=== PATIENT | female | born 1975 | race Caucasian/White ===

== ENCOUNTER 2018-09-08 13:09 | Emergency (ER) | payer MEDICAID, SELFPAY ==
--- NOTE | 2018-09-08 13:28 | NUTRITION ---
pt slipped on the ice at 0300 am after a night of drinking in [place] pt states no LOC complaining of 10/10 pain in the left wrist, 8/10 scolder, 6/10 headache
[2018-09-08 13:31] VITALS: BP 129/91; PULSE 81; RESP 16; TEMP 37.2; O2SAT 96
--- NOTE | 2018-09-08 13:48 | W.ED.GENAD ---
Discharge Plan Disposition Patient Disposition: HOME Discharge Details Chief Complaint: Orthopedic Clinical Impression: Fall due to ice or snow, Degenerative disc disease, cervical, Thyroid nodule, Contusion of elbow and forearm Primary Care Provider: Natalie Chirinos ED Provider: Dajuan Corcoran Home Meds and New Rx's Prescriptions: Continued buspirone 15 MG tablet 7.5 mg PO BID RF: 0 Discharge Instructions Instructions: Contusion in Adults (ED), Fall Prevention (ED) Additional Instructions: Were noted to have a thyroid nodule on CT of your cervical spine. It was recommended that you have a follow-up ultrasound. Please be sure to discuss incidental findings on your imaging studies with your primary care physician as he will need additional diagnostic testing. Use sling as needed for comfort. Please take ibuprofen over the counter - dose according to label. Disposition decision was made weighing the risks and benefits of hospitalization versus outpatient treatment, the risk for further decompensation, and the patient's wishes. The patient was stable and requested discharge. Prior to discharge, my usual and customary return precautions were reviewed with the patient - this included follow-up instructions and reason to return to the emergency department if condition worsens, does not improve as expected, or other new concerns arise. Referrals: Natalie Chirinos [Primary Care Provider] - Medical Decision Making 13:52 --42-year-old female presents after fall last night at 3 AM on ice with pain in her left forearm and elbow as well as left scapula and headache. Consider left forearm and elbow fracture. Will xray. Consider acute life-threatening intracranial traumatic hemorrhage. Plan to CT head. Patient has possible distracting injury with forearm injury. Consider C-spine fracture given mechanism and pain. Plan to CT cervical spine. 16:50 --x-ray of the left elbow interpreted by radiology: There is no evidence of acute fracture. X-ray of the left forearm reviewed and interpreted by radiology: There is no evidence of acute fracture. X-ray of the left scapula reviewed and interpreted by radiology: No acute findings. CT of head interpreted by radiology: No acute intracranial abnormality. CT of the cervical spine interpreted by radiology: IMPRESSION: 1. No acute fracture of the cervical spine. 2. No subluxation or dislocation of the cervical spine. 3. Periapical lucencies in the left axilla may represent periapical abscess. 4. Intervertebral disc space narrowing C5-C7 may represent degenerative disc disease. Recommend MRI. 5. 15 mm nodule right lobe of the thyroid. Recommend thyroid ultrasound All results were reviewed with the patient. He was instructed to follow-up with her primary care physician. She was specifically told that she would need additional diagnostic testing including thyroid ultrasound. Patient was given ibuprofen and reassessed and her pain was improved. She will be diagnosed with a sling to use for comfort. Usual and customary discharge instructions were provided. [facility] General Mode of arrival: ambulatory. Date/Time Provider Initiated Documentation: 09/08/18 13:30. Limitations to Documentation: no limitations. Information obtained by: patient. HPI Narrative: 42-year-old female here with chief complaint of left forearm pain. Pain is severe. Pain is constant. Pain persistent since last night when she slipped and fell on ice and sustained injury to her arm. She does note that she hit her head during this fall and continues to have posterior left headache as well as nausea. Patient also notes neck and scapular pain on the left. No associated chest pain or abdominal pain. No shortness of breath. Related Data Home Medications Medication Instructions Recorded Confirmed buspirone 7.5 mg PO BID 02/03/13 09/08/18 Allergies Allergy/AdvReac Type Severity Reaction Status Date / Time bee pollen [Bee Pollen] Allergy Intermediate Swelling/Ed Unverified 09/08/18 14:12 ken General Stated Complaint: Orthopedic KATIE: 3 Review of Systems Review of Systems All systems reviewed & are unremarkable except as noted in HPI and below Musculoskeletal Reports as per HPI PFSH Social History Smoking and Tabacco status: Never Exam Const General: cooperative and no acute distress [facility] Head: normocephalic, no Tony's sign, hematoma left occipital (small) and no raccoon eyes Mouth: moist mucous membranes Eyes Conjunctivae: normal conjunctivae Sclera: normal sclerae EOM: EOM intact bilaterally Neck Neck: trachea midline, supple and tender (left posterior) Resp Auscultation: clear to auscultation bilaterally, no rales, no rhonchi and no wheezes Cardio Jugular venous pressure: no JVD Rate: regular rate and not tachycardic Rhythm: regular rhythm GI Palpation: soft, not firm, no guarding, no masses, not rigid and nontender Back/Spine/Pelvis Thoracic/Lumbar Spine: thoracic and lumbar spine normal to inspection Other: left superior scapula ttp Skin General skin exam: no rashes or lesions noted Neuro General: alert, awake, oriented x3 and tone normal Extrem General: no edema Left upper extremity: elbow/forearm Details: tenderness Location: of the proximal forearm and abnormal ROM (2/2 pain) Details: held in an abnormal fashion Details: in flexion Other: stal LUE sensation and motor intact Psych Appearance: grossly normal Mental Status: mental status grossly normal Speech and Movement: speech and movement normal
--- NOTE | 2018-09-08 13:54 | ED.GENADUL_ITS ---
Discharge Plan Disposition Patient Disposition: HOME Discharge Details Chief Complaint: Orthopedic Clinical Impression: Fall due to ice or snow, Degenerative disc disease, cervical, Thyroid nodule, Contusion of elbow and forearm Primary Care Provider: Natalie Chirinos ED Provider: Dajuan Corcoran Home Meds and New Rx's Prescriptions: Continued buspirone 15 MG tablet 7.5 mg PO BID RF: 0 Discharge Instructions Instructions: Contusion in Adults (ED), Fall Prevention (ED) Additional Instructions: Were noted to have a thyroid nodule on CT of your cervical spine. It was recommended that you have a follow-up ultrasound. Please be sure to discuss incidental findings on your imaging studies with your primary care physician as he will need additional diagnostic testing. Use sling as needed for comfort. Please take ibuprofen over the counter - dose according to label. Disposition decision was made weighing the risks and benefits of hospitalization versus outpatient treatment, the risk for further decompensation, and the patient's wishes. The patient was stable and requested discharge. Prior to discharge, my usual and customary return precautions were reviewed with the patient - this included follow-up instructions and reason to return to the emergency department if condition worsens, does not improve as expected, or other new concerns arise. Referrals: Natalie Chirinos [Primary Care Provider] - Medical Decision Making 13:52 --42-year-old female presents after fall last night at 3 AM on ice with pain in her left forearm and elbow as well as left scapula and headache. Consider left forearm and elbow fracture. Will xray. Consider acute life-threatening intracranial traumatic hemorrhage. Plan to CT head. Patient has possible distracting injury with forearm injury. Consider C- spine fracture given mechanism and pain. Plan to CT cervical spine. 16:50 --x-ray of the left elbow interpreted by radiology: There is no evidence of acute fracture. X-ray of the left forearm reviewed and interpreted by radiology: There is no evidence of acute fracture. X-ray of the left scapula reviewed and interpreted by radiology: No acute findings. CT of head interpreted by radiology: No acute intracranial abnormality. CT of the cervical spine interpreted by radiology: IMPRESSION: 1. No acute fracture of the cervical spine. 2. No subluxation or dislocation of the cervical spine. 3. Periapical lucencies in the left axilla may represent periapical abscess. 4. Intervertebral disc space narrowing C5-C7 may represent degenerative disc disease. Recommend MRI. 5. 15 mm nodule right lobe of the thyroid. Recommend thyroid ultrasound All results were reviewed with the patient. He was instructed to follow-up with her primary care physician. She was specifically told that she would need additional diagnostic testing including thyroid ultrasound. Patient was given ibuprofen and reassessed and her pain was improved. She will be diagnosed with a sling to use for comfort. Usual and customary discharge instructions were provided. [facility] General Mode of arrival: ambulatory . Date/Time Provider Initiated Documentation: 09/08/18 13:30 . Limitations to Documentation: no limitations . Information obtained by: patient . HPI Narrative: 42-year-old female here with chief complaint of left forearm pain. Pain is severe. Pain is constant. Pain persistent since last night when she slipped and fell on ice and sustained injury to her arm. She does note that she hit her head during this fall and continues to have posterior left headache as well as nausea. Patient also notes neck and scapular pain on the left. No associated chest pain or abdominal pain. No shortness of breath. Related Data Home Medications Medication Instructions Recorded Confirmed buspirone 7.5 mg PO BID 02/03/13 09/08/18 Allergies Allergy/AdvReac Type Severity Reaction Status Date / Time bee pollen [Bee Pollen] Allergy Intermediate Swelling/Ed Unverified 09/08/18 14:12 ken General Stated Complaint: Orthopedic KATIE: 3 Review of Systems Review of Systems All systems reviewed & are unremarkable except as noted in HPI and below Musculoskeletal Reports as per HPI PFSH Social History Smoking and Tabacco status: Never Exam Const General: cooperative and no acute distress [facility] Head: normocephalic, no Tony's sign, hematoma left occipital (small) and no raccoon eyes Mouth: moist mucous membranes Eyes Conjunctivae: normal conjunctivae Sclera: normal sclerae EOM: EOM intact bilaterally Neck Neck: trachea midline, supple and tender (left posterior) Resp Auscultation: clear to auscultation bilaterally, no rales, no rhonchi and no wheezes Cardio Jugular venous pressure: no JVD Rate: regular rate and not tachycardic Rhythm: regular rhythm GI Palpation: soft, not firm, no guarding, no masses, not rigid and nontender Back/Spine/Pelvis Thoracic/Lumbar Spine: thoracic and lumbar spine normal to inspection Other: left superior scapula ttp Skin General skin exam: no rashes or lesions noted Neuro General: alert, awake, oriented x3 and tone normal Extrem General: no edema Left upper extremity: elbow/forearm Details: tenderness Location: of the proximal forearm and abnormal ROM (2/2 pain) Details: held in an abnormal fashion Details: in flexion Other: stal LUE sensation and motor intact Psych Appearance: grossly normal Mental Status: mental status grossly normal Speech and Movement: speech and movement normal
--- NOTE | 2018-09-08 14:35 | DI.CT_ITS ---
SYMPTOMS/DIAGNOSIS: PAIN S/P FALL, POTENTIAL DISTRACTING INJURY CT BRAIN, NONCONTRAST: No priors. The ventricular system is normal in appearance. There is no evidence of an intracranial mass lesion. There is no evidence of a subdural or epidural hematoma. No focal areas of decreased attenuation are seen. IMPRESSION: Normal noncontrast cranial CT. CT SCAN OF THE CERVICAL SPINE: Multiple contiguous axial images of the cervical spine were obtained. Sagittal and coronal reformatted images were evaluated on the Siem[employer] workstation. There are no priors for comparison. There is no acute fracture or subluxation in the cervical spine. There are moderate degenerative changes seen throughout the cervical spine, particularly from C5-6 through C7-T1. If there are radicular concerns, an MRI may be considered for further evaluation. IMPRESSION: No acute fracture or subluxation of cervical spine.
--- NOTE | 2018-09-08 14:42 | DI.RAD_ITS ---
SYMPTOMS/DIAGNOSIS: FALL, PAIN AND TENDERNESS LEFT SCAPULA: Two views. No acute fracture or dislocation is identified. LEFT FOREARM: Two views. The patient's bracelet obscures portions of the distal radius and ulna. No acute fracture or dislocation is seen. The soft tissues are unremarkable. IMPRESSION: No acute fracture or dislocation. LEFT ELBOW: Three views. No acute fracture or dislocation is identified.
--- NOTE | 2018-09-08 15:09 | DI.VRAD_ITS ---
EXAM: CT Head Without Contrast EXAM DATE/TIME: 09/08/2018 1:49 PM CLINICAL HISTORY: 42 years old, female; Signs and symptoms; Other: Fall, pain, potential distracting injury TECHNIQUE: Axial computed tomography images of the head/brain without contrast. All CT scans at this facility use at least one of these dose optimization techniques: automated exposure control; mA and/or kV adjustment per patient size (includes targeted exams where dose is matched to clinical indication); or iterative reconstruction. Coronal and sagittal reformatted images were created and reviewed. COMPARISON: No relevant prior studies available. FINDINGS: Brain: Normal. No hemorrhage. No significant white matter disease. No edema. Ventricles: Normal. No ventriculomegaly. Bones/joints: Unremarkable. No acute fracture. Sinuses: Visualized sinuses are unremarkable. No acute sinusitis. Mastoid air cells: Visualized mastoid air cells are unremarkable. No mastoid effusion. Soft tissues: Unremarkable. IMPRESSION: No acute intracranial abnormality. EXAM: CT Cervical Spine Without Contrast EXAM DATE/TIME: 09/08/2018 1:49 PM CLINICAL HISTORY: 42 years old, female; Signs and symptoms; Other: Fall, pain, potential distracting injury TECHNIQUE: Axial computed tomography images of the cervical spine without intravenous contrast. All CT scans at this facility use at least one of these dose optimization techniques: automated exposure control; mA and/or kV adjustment per patient size (includes targeted exams where dose is matched to clinical indication); or iterative reconstruction. Coronal and sagittal reformatted images were created and reviewed. COMPARISON: No relevant prior studies available. FINDINGS: Vertebrae: No acute fracture of the cervical spine. No subluxation or dislocation of the cervical spine. Anterior osteophyte formation C5-C7 Degenerative changes in the facets at multiple levels Degenerative changes at C1/C2 Discs/Spinal canal/Neural foramina: Intervertebral disc space narrowing C5-C7 may represent degenerative disc disease.. Posterior osteophyte formation C5-C7 Soft tissues: Unremarkable. Dental: Periapical lucencies in the left axilla may represent periapical abscess. Thyroid: 15 mm nodule right lobe of the thyroid Lungs: Lung apices are normal. IMPRESSION: 1. No acute fracture of the cervical spine. 2. No subluxation or dislocation of the cervical spine. 3. Periapical lucencies in the left axilla may represent periapical abscess. 4. Intervertebral disc space narrowing C5-C7 may represent degenerative disc disease. Recommend MRI. 5. 15 mm nodule right lobe of the thyroid. Recommend thyroid ultrasound Dictated and Authenticated by: Dorina Antony MD. Ordering:MARITA Graff MD
--- NOTE | 2018-09-08 15:10 | DI.VRAD_ITS ---
EXAM: XR Left Scapula Complete EXAM DATE/TIME: 09/08/2018 2:56 PM CLINICAL HISTORY: 42 years old, female; Pain; Shoulder; Left; Patient HX: Fall on ice this morning, pain left scapular area. TECHNIQUE: XR Left scapula complete. COMPARISON: No relevant prior studies available. FINDINGS: Bones/joints: Normal. There is no evidence of acute fracture.There is no evidence of malalignment or dislocation. Soft tissues: Normal. IMPRESSION: No acute findings. Dictated and Authenticated by: Dorina Antony MD. Ordering:MARITA Graff MD
--- NOTE | 2018-09-08 15:12 | DI.VRAD_ITS ---
EXAM: XR Left Forearm, 2 Views EXAM DATE/TIME: 09/08/2018 2:56 PM CLINICAL HISTORY: 42 years old, female; Pain; Lower or forearm; Left; Patient HX: Pain left elbow and forearm. Best images obtained due to patient unable to externally rotate arm for elbow. Patient unable to remove bracelets have been on since 1998. TECHNIQUE: XR Left forearm 2 views. COMPARISON: No relevant prior studies available. FINDINGS: Bones/joints: There is no evidence of acute fracture. There is no evidence of malalignment or dislocation. Mild degenerative changes in the humeroulnar joint Soft tissues: Normal. IMPRESSION: There is no evidence of acute fracture. Dictated and Authenticated by: Dorina Antony MD. Ordering:MARITA Graff MD
--- NOTE | 2018-09-08 15:13 | DI.VRAD_ITS ---
EXAM: XR Left Elbow Complete, 3 or more Views EXAM DATE/TIME: 09/08/2018 1:49 PM CLINICAL HISTORY: 42 years old, female; Pain; Elbow; Left; Patient HX: Pain left elbow and forearm. Best images obtained due to patient unable to externally rotate arm for elbow. Patient unable to remove bracelets have been on since 1998. TECHNIQUE: XR Left elbow, 3 or more views. COMPARISON: No relevant prior studies available. FINDINGS: Bones/joints: Minimal degenerative changes in the humeroulnar joint. There is no evidence of acute fracture. There is no evidence of malalignment or dislocation. Soft tissues: Normal. IMPRESSION: There is no evidence of acute fracture. Dictated and Authenticated by: Dorina Antony MD. Ordering:MARITA Graff MD
[2018-09-08] MEDS: Acetaminophen 325 MG TAB 650 MG PO (15:53)
[2018-09-08] MEDS: Ibuprofen 600 MG TAB PO (15:54)
== END 2018-09-08 17:00 | disposition home or self-care (01) ==
PROVIDERS: Emergency Provider Student in an Organized Health Care Education/Training Program; PCP Family Medicine
DX: M50.322 Other cervical disc degeneration at C5-C6 level (principal); M50.323 Other cervical disc degeneration at C6-C7 level; R93.7 Abnormal findings on diagnostic imaging of other parts of musculoskeletal system; S50.12XA Contusion of left forearm, initial encounter; S40.012A Contusion of left shoulder, initial encounter; R51 Headache; W00.0XXA Fall on same level due to ice and snow, initial encounter
CPT/HCPCS: 81025; 99284; 70450; 72125; 73010; 73080; 73090; L3650

== ENCOUNTER 2018-09-11 09:37 | Outpatient (REF) | payer MEDICAID, SELFPAY ==
[2018-09-11 14:25] LABS: FREE T4 1.01 ng/dL (0.76-1.46); TSH 2.66 uIU/mL (0.358-3.74)
[2018-09-11 22:10] LABS: T3,Free 4.7 pg/ml (2.8-5.3)
[2018-09-12 10:01] LABS: Thyroglobulin Antibody <15 U/mL (<61); Thyroperoxidase Antibody 37 U/mL (<61)
== END 2018-09-11 09:57 ==
LOC: NCHCN 09:37
PROVIDERS: PCP Family Medicine; Visit Provider Nurse Practitioner Family
DX: E04.1 Nontoxic single thyroid nodule (principal); M54.2 Cervicalgia; R51 Headache
CPT/HCPCS: 86376; 84439; 84443; 84481

== ENCOUNTER 2018-09-13 00:19 | Outpatient (CLI) | payer MEDICAID, SELFPAY ==
--- NOTE | 2018-09-13 14:00 | DI.US_ITS ---
SYMPTOMS/DIAGNOSIS: THYROID NODULE, E04.1 THYROID ULTRASOUND: In the right lobe, there is a 0.4 x 0.2 x 0.3 cm cystic avascular nodule present. In the left lobe, there is a 0.2 x 0.1 x 0.3 cm cystic avascular nodule present. No suspicious cystic or solid nodules are seen in the thyroid gland. The isthmus is within normal limits at 0.5 cm. IMPRESSION: Two small less than 5 mm cystic avascular nodules in the thyroid gland.
== END 2018-09-13 00:39 ==
PROVIDERS: PCP Family Medicine; Visit Provider Nurse Practitioner Family
DX: E04.1 Nontoxic single thyroid nodule (principal)
CPT/HCPCS: 76536

== ENCOUNTER 2018-12-09 13:49 | Emergency (ER) | payer MEDICAID, SELFPAY ==
[2018-12-09 13:59] VITALS: BP 151/101; PULSE 87; RESP 16; TEMP 36.5; O2SAT 97
--- NOTE | 2018-12-09 14:03 | W.ED.GENAD ---
Discharge Plan Disposition Patient Disposition: HOME Condition: Fair Discharge Details Chief Complaint: Sorethroat Clinical Impression: Strep pharyngitis Primary Care Provider: Joanna Minor ED Provider: Eva Vidal Home Meds and New Rx's Prescriptions: New lidocaine HCl [Lidocaine Viscous] 2 % solution 15 ml MM BID-QID PRN (Reason: mouth pain) Qty: 100 RF: 0 amoxicillin 500 mg capsule 500 mg PO BID Qty: 19 RF: 0 Continued buspirone 15 MG tablet 7.5 mg PO BID RF: 0 Discharge Instructions Instructions: Upper Respiratory Infection (ED) Additional Instructions: Encourage hydration. Tylenol and ibuprofen as needed for discomfort. You may use viscous lidocaine as prescribed to help with sore throat, only take as prescribed. Amoxicillin will help treat your strep pharyngitis, even if symptoms improve please take the entire course. You will need to change her toothbrush. If you develop increased swelling, inability stay hydrated, difficulty breathing or other new/worsening symptoms please seek care urgently once again. Otherwise, please follow-up with primary care in 1 week if not improved. Referrals: Joanna Minor [Primary Care Provider] - Discharge Data Discharge Date/Time-TO BE ENTERED AT DEPARTURE: 12/09/18 15:00 Medical Decision Making Patient is a 43-year-old female presenting today with chief complaint of sore throat. She reports that symptoms began approximately 3 days ago. Has been endorsing fevers, chills, sore throat and bilateral ear pain. Denies any GI symptoms. On exam, patient appears uncomfortable. Throat is erythematous with bilateral tonsillar swelling and white exudate. Palpable lymphadenopathy. Patient is handling secretions well although she does appear uncomfortable. She has not had anything as of yet today for discomfort. Patient appears nontoxic. No abnormalities noted in her bilateral ears. No findings to suggest abscess, no trismus, no swelling under tongue. Rapid strep positive, UPT negative. Discussed these findings with the patient. Given the swelling, will give patient a dose of steroids while here. Patient will be treated with antibiotics. Encourage hydration. She is given strict return precautions. Advise follow-up with primary care in 1 week if not improving. All of her questions and concerns were addressed and she is in agreement this plan. HPI General Mode of arrival: ambulatory. Date/Time Provider Initiated Documentation: 12/09/18 14:03. Limitations to Documentation: no limitations. Information obtained by: patient and RN notes reviewed. History of Present Illness 43 year old F presents to the emergency department with the chief complaint of sore throat, described as moderate, with intensity rated at 8. Quality is described as burning, and is localized to the mouth. Patient reports no radiation. Patient started experiencing this day(s) (3) and it has been constant. No relieving factors improve symptom(s), Eating worsens symptoms . Patient notes fever/chills and loss of appetite (secondary to sore throat); denies chest pain, cough, diaphoresis, headaches, malaise, nausea/vomiting, rash, shortness of breath and weakness. Patient did receive the following treatments prior to arrival, none Related Data Home Medications Medication Instructions Recorded Confirmed buspirone 7.5 mg PO BID 02/03/12/09/18 amoxicillin 500 mg PO BID #19 cap 12/09/18 lidocaine HCl [Lidocaine Viscous] 15 ml MM BID-QID PRN #100 ml 12/09/18 Previous Rx's Medication Instructions Recorded amoxicillin 500 mg PO BID #19 cap 12/09/18 lidocaine HCl [Lidocaine Viscous] 15 ml MM BID-QID PRN #100 ml 12/09/18 Allergies Allergy/AdvReac Type Severity Reaction Status Date / Time bee pollen [Bee Pollen] Allergy Intermediate Swelling/Ed Unverified 12/09/18 14:01 ken General Stated Complaint: Sorethroat KATIE: 4 Review of Systems Constitutional Reports as per HPI, Reports chills, Reports fatigue, Reports fever(s), Denies headache(s) and Reports poor appetite Eyes Reports as per HPI, Denies eye discharge and Denies irritation ENT Reports as per HPI, Denies change in voice, Denies dental pain, Denies dizziness, Denies ear discharge, Reports otalgia (bilateral), Denies headache(s), Denies nasal congestion, Denies nasal discharge, Denies sinus pain, Denies sinus pressure, Reports sore throat, Denies throat swelling and Denies tongue swelling Cardiovascular Reports as per HPI, Denies chest pain and Denies dyspnea Respiratory Reports as per HPI, Denies cough, Denies hemoptysis and Denies dyspnea Gastrointestinal Reports as per HPI, Denies abdominal pain, Denies change in bowel habits, Denies nausea and Denies vomiting Integumentary/Breasts Reports as per HPI and Denies rash Neurologic Reports as per HPI, Denies dizziness and Denies headache(s) Endocrine Reports fatigue Allergic/Immunologic Denies throat swelling and Denies tongue swelling [facility] Social History Smoking/Tobacco Use Status: Never Drug use: Never Do you feel safe in your relationship?: Yes Exam Const General: cooperative, healthy appearing, comfortable, no acute distress, well developed and well groomed Nutritional Appearance: average body habitus and well nourished Orientation: alert and awake [facility] Head: normal to inspection, normocephalic and atraumatic Ears: hearing grossly normal bilaterally, external ears normal and TM's normal bilaterally General nose exam: external nose normal and nares normal Face and sinus: normal facial exam, sinuses nontender, face symmetric and no sinus tenderness Mouth: oral mucosae normal, lip normal, tongue normal, oropharynx normal, moist mucous membranes, no muffled voice, normal tongue, no trismus and No restricted motion Teeth and gingiva: dentition normal Throat: uvula midline, abnormal tonsil bilaterally erythema, exudates and hypertrophy, no peritonsillar masses, uvula not displaced and no uvular edema Eyes General: appearance normal, both eyes and all related structures Neck Neck: normal visual inspection, full ROM, no lymphadenopathy and no meningeal signs Resp Effort & Inspection: normal respiratory effort, able to speak in complete sentences and no respiratory distress Auscultation: clear to auscultation bilaterally, no rales, no rhonchi and no wheezes Cardio Rate: regular rate Rhythm: regular rhythm Heart Sounds: S1 normal and S2 normal Skin General skin exam: no rashes or lesions noted Neuro General: alert and awake Cognition: normal cognition Speech: speech normal Gait: normal gait Psych Appearance: grossly normal and well kempt Mental Status: mental status grossly normal Speech and Movement: speech and movement normal Course Vital Signs Temperature 36.5 C 12/09/18 13:59 Pulse 87 12/09/18 13:59 Respiratory Rate 16 12/09/18 13:59 Blood Pressure 151/101 H 12/09/18 13:59 Pulse Oximetry 97 12/09/18 13:59 Temperature 36.5 C 12/09/18 13:59 Temperature Source Skin 12/09/18 13:59 Pulse 87 12/09/18 13:59 Respiratory Rate 16 12/09/18 13:59 Respiratory Effort Non-Labored 12/09/18 13:59 Blood Pressure 151/101 H 12/09/18 13:59 Blood Pressure Position Sitting 12/09/18 13:59 Pulse Oximetry 97 12/09/18 13:59 Oxygen Delivery Method Room Air 12/09/18 13:59 Oxygen Flow Rate 0 12/09/18 13:59 Pain Level 8 12/09/18 13:59
--- NOTE | 2018-12-09 14:45 | ED.GENADUL_ITS ---
Discharge Plan Disposition Patient Disposition: HOME Condition: Fair Discharge Details Chief Complaint: Sorethroat Clinical Impression: Strep pharyngitis Primary Care Provider: Joanna Minor ED Provider: Eva Vidal Home Meds and New Rx's Prescriptions: New lidocaine HCl [Lidocaine Viscous] 2 % solution 15 ml MM BID-QID PRN (Reason: mouth pain) Qty: 100 RF: 0 amoxicillin 500 mg capsule 500 mg PO BID Qty: 19 RF: 0 Continued buspirone 15 MG tablet 7.5 mg PO BID RF: 0 Discharge Instructions Instructions: Upper Respiratory Infection (ED) Additional Instructions: Encourage hydration. Tylenol and ibuprofen as needed for discomfort. You may use viscous lidocaine as prescribed to help with sore throat, only take as prescribed. Amoxicillin will help treat your strep pharyngitis, even if symptoms improve please take the entire course. You will need to change her toothbrush. If you develop increased swelling, inability stay hydrated, difficulty breathing or other new/worsening symptoms please seek care urgently once again. Otherwise, please follow-up with primary care in 1 week if not improved. Referrals: Joanna Minor [Primary Care Provider] - Discharge Data Discharge Date/Time-TO BE ENTERED AT DEPARTURE: 12/09/18 15:00 Medical Decision Making Patient is a 43-year-old female presenting today with chief complaint of sore throat. She reports that symptoms began approximately 3 days ago. Has been endorsing fevers, chills, sore throat and bilateral ear pain. Denies any GI symptoms. On exam, patient appears uncomfortable. Throat is erythematous with bilateral tonsillar swelling and white exudate. Palpable lymphadenopathy. Patient is handling secretions well although she does appear uncomfortable. She has not had anything as of yet today for discomfort. Patient appears nontoxic. No abnormalities noted in her bilateral ears. No findings to suggest abscess, no trismus, no swelling under tongue. Rapid strep positive, UPT negative. Discussed these findings with the patient. Given the swelling, will give patient a dose of steroids while here. Patient will be treated with antibiotics. Encourage hydration. She is given strict return precautions. Advise follow-up with primary care in 1 week if not improving. All of her questions and concerns were addressed and she is in agreement this plan. HPI General Mode of arrival: ambulatory . Date/Time Provider Initiated Documentation: 12/09/18 14:03 . Limitations to Documentation: no limitations . Information obtained by: patient and RN notes reviewed . History of Present Illness 43 year old F presents to the emergency department with the chief complaint of sore throat, described as moderate, with intensity rated at 8. Quality is described as burning, and is localized to the mouth. Patient reports no radiation. Patient started experiencing this day(s) (3) and it has been constant. No relieving factors improve symptom(s), Eating worsens symptoms . Patient notes fever/chills and loss of appetite (secondary to sore throat); denies chest pain, cough, diaphoresis, headaches, malaise, nausea/vomiting, rash, shortness of breath and weakness. Patient did receive the following treatments prior to arrival, none Related Data Home Medications Medication Instructions Recorded Confirmed buspirone 7.5 mg PO BID 02/03/12/09/18 amoxicillin 500 mg PO BID #19 cap 12/09/18 lidocaine HCl [Lidocaine Viscous] 15 ml MM BID-QID PRN #100 ml 12/09/18 Previous Rx's Medication Instructions Recorded amoxicillin 500 mg PO BID #19 cap 12/09/18 lidocaine HCl [Lidocaine Viscous] 15 ml MM BID-QID PRN #100 ml 12/09/18 Allergies Allergy/AdvReac Type Severity Reaction Status Date / Time bee pollen [Bee Pollen] Allergy Intermediate Swelling/Ed Unverified 12/09/18 14:01 ken General Stated Complaint: Sorethroat KATIE: 4 Review of Systems Constitutional Reports as per HPI, Reports chills, Reports fatigue, Reports fever(s), Denies headache(s) and Reports poor appetite Eyes Reports as per HPI, Denies eye discharge and Denies irritation ENT Reports as per HPI, Denies change in voice, Denies dental pain, Denies dizz iness, Denies ear discharge, Reports otalgia (bilateral), Denies headache(s), Denies nasal congestion, Denies nasal discharge, Denies sinus pain, Denies sinus pressure, Reports sore throat, Denies throat swelling and Denies tongue swelling Cardiovascular Reports as per HPI, Denies chest pain and Denies dyspnea Respiratory Reports as per HPI, Denies cough, Denies hemoptysis and Denies dyspnea Gastrointestinal Reports as per HPI, Denies abdominal pain, Denies change in bowel habits, Denies nausea and Denies vomiting Integumentary/Breasts Reports as per HPI and Denies rash Neurologic Reports as per HPI, Denies dizziness and Denies headache(s) Endocrine Reports fatigue Allergic/Immunologic Denies throat swelling and Denies tongue swelling [facility] Social History Smoking/Tobacco Use Status: Never Drug use: Never Do you feel safe in your relationship?: Yes Exam Const General: cooperative, healthy appearing, comfortable, no acute distress, well developed and well groomed Nutritional Appearance: average body habitus and well nourished Orientation: alert and awake [facility] Head: normal to inspection, normocephalic and atraumatic Ears: hearing grossly normal bilaterally, external ears normal and TM's normal bilaterally General nose exam: external nose normal and nares normal Face and sinus: normal facial exam, sinuses nontender, face symmetric and no sinus tenderness Mouth: oral mucosae normal, lip normal, tongue normal, oropharynx normal, moist mucous membranes, no muffled voice, normal tongue, no trismus and No restricted motion Teeth and gingiva: dentition normal Throat: uvula midline, abnormal tonsil bilaterally erythema, exudates and hypertrophy, no peritonsillar masses, uvula not displaced and no uvular edema Eyes General: appearance normal, both eyes and all related structures Neck Neck: normal visual inspection, full ROM, no lymphadenopathy and no meningeal signs Resp Effort & Inspection: normal respiratory effort, able to speak in complete sentences and no respiratory distress Auscultation: clear to auscultation bilaterally, no rales, no rhonchi and no wheezes Cardio Rate: regular rate Rhythm: regular rhythm Heart Sounds: S1 normal and S2 normal Skin General skin exam: no rashes or lesions noted Neuro General: alert and awake Cognition: normal cognition Speech: speech normal Gait: normal gait Psych Appearance: grossly normal and well kempt Mental Status: mental status grossly normal Speech and Movement: speech and movement normal Course Vital Signs Temperature 36.5 C 12/09/18 13:59 Pulse 87 12/09/18 13:59 Respiratory Rate 16 12/09/18 13:59 Blood Pressure 151/101 H 12/09/18 13:59 Pulse Oximetry 97 12/09/18 13:59 Temperature 36.5 C 12/09/18 13:59 Temperature Source Skin 12/09/18 13:59 Pulse 87 12/09/18 13:59 Respiratory Rate 16 12/09/18 13:59 Respiratory Effort Non-Labored 12/09/18 13:59 Blood Pressure 151/101 H 12/09/18 13:59 Blood Pressure Position Sitting 12/09/18 13:59 Pulse Oximetry 97 12/09/18 13:59 Oxygen Delivery Method Room Air 12/09/18 13:59 Oxygen Flow Rate 0 12/09/18 13:59 Pain Level 8 12/09/18 13:59
[2018-12-09] MEDS: Dexamethasone 10 MG/ML VIAL PO (14:50)
[2018-12-09] MEDS: Amoxicillin 500 MG CAP PO (14:50)
[2018-12-09] MEDS: Lidocaine 2% Viscous 15 ML CUP PO (14:50)
[2018-12-09] MEDS: Acetaminophen 325 MG TAB 650 MG PO (14:50)
== END 2018-12-09 15:00 | disposition home or self-care (01) ==
PROVIDERS: Emergency Provider Physician Assistant; PCP Nurse Practitioner Family
DX: J02.0 Streptococcal pharyngitis (principal)
CPT/HCPCS: 81025; 87880; 99283; J1100

== ENCOUNTER 2019-07-19 09:39 | Emergency (ER) | payer MEDICAID, SELFPAY ==
[2019-07-19 09:44] VITALS: BP 122/82; PULSE 101; RESP 18; TEMP 36.4; O2SAT 98
--- NOTE | 2019-07-19 10:31 | ED.GENADUL_ITS ---
Discharge Plan Disposition Patient Disposition: HOME Condition: Fair Discharge Details Chief Complaint: Sorethroat Clinical Impression: Strep pharyngitis Primary Care Provider: Joanna Minor ED Provider: Joanna Nieto Home Meds and New Rx's Prescriptions: New penicillin V potassium 500 mg tablet 500 mg PO BID Qty: 20 RF: 0 No Action buspirone 15 MG tablet 7.5 mg PO BID RF: 0 ibuprofen 200 mg Tablet 600 mg PO PRN PRNRF: 0 Discharge Instructions Instructions: Strep Throat (ED) Additional Instructions: Drink plenty of fluids and stay hydrated. Popsicles, ice cream, smoothies and cold drinks for comfort for your throat. Consider Cepacol lozenge for comfort. Use Motrin or Tylenol for discomfort and fever control intermittently as recommended [id number]. Use antibiotic as prescribed. Recheck with PCP in the next 3 to 5 days if not improving For difficulty eating, drinking increased throat pain or increase sensation of swelling have immediate reevaluation in the emergency room as discussed. Return for alarming or worsening symptoms if needed sooner Medical Decision Making This a 43-year-old patient who presents for complaints of sore throat. Patient reports sore throat for the last 2 days. Patient reports painful swallowing but is able to swallow eat and drink. Patient denies significant difficulty breathing or shortness of breath or wheezing. Mild cough present. Mild nausea and abdominal pain intermittently which is since resolved. Patient reports mild headache. Mild ear pain. Patient reports feeling febrile yesterday. Patient concerned primarily with the possibility of strep throat as this does feel similar to her previous experience with strep. On exam patient does have moderate pharyngeal erythema without significant tonsillar swelling or exudate. Patient has nothing to indicate an peritonsillar abscess at this time. Patient does report pain when swallowing has been able to tolerate eating and drinking but seems uncomfortable. Discussed the use of steroids for symptomatic relief however at this time patient declines steroid treatment and would prefer antibiotic treatment in addition to ibuprofen and Tylenol. Patient is aware of alarming signs and symptoms for which she should return as we did discuss these at length. Patient feels comfortable with this plan of care. Patient is strep positive today. Will give initial dose of Tylenol and penicillin at this time. Patient given a prescription for 10 days of penicillin. Precautions discussed. The patient was stable and requested discharge. Prior to discharge, my usual and customary return precautions were reviewed with the patient - this included follow-up instructions and reasons to return to the Emergency Department if conditions worsens, does not improve as expected, or other new concerns arise. HPI General Date/Time Provider Initiated Documentation: 07/19/19 10:18 . HPI Narrative: Is a 43-year-old woman who presents with sore throat which began 2 days ago. Patient reports onset of sore throat associated with fevers at home, mild nausea with abdominal pain which is intermittent and relieved at this time. Patient reports significant sore throat, painful swallowing. Patient denies significant headache or dizziness. Patient does report ear pain. Minimal nasal congestion. Minimal cough. No significant difficulty breathing shortness breath or wheezing. Patient concerned the possibility of strep throat. She has had strep in the past and this feels similar. Denies voice change or trismus. Related Data Home Medications Medication Instructions Recorded Confirmed buspirone 7.5 mg PO BID 02/03/13 07/19/19 ibuprofen 600 mg PO PRN PRN 07/19/19 07/19/19 penicillin V potassium 500 mg PO BID #20 tab 07/19/19 Previous Rx's Medication Instructions Recorded penicillin V potassium 500 mg PO BID #20 tab 07/19/19 Allergies Allergy/AdvReac Type Severity Reaction Status Date / Time bee pollen [Bee Pollen] Allergy Intermediate Swelling/Ed Unverified 07/19/19 09:48 ken General Stated Complaint: Sorethroat KATIE: 4 Review of Systems All systems reviewed & are unremarkable except as noted in HPI and below Constitutional Constitutional: Denies chills, Denies fatigue, Reports fever(s), Reports headache(s) and Denies malaise ENT Ears, Nose, Mouth, and Throat: Denies change in voice, Reports headache(s), Reports nasal congestion, Denies sinus pain, Denies sinus pressure, Reports sore throat and Reports throat swelling Respiratory Respiratory: Reports cough and Denies wheezing Gastrointestinal Gastrointestinal: Reports abdominal pain, Reports nausea and Denies vomiting Neurologic Neurologic: Reports headache(s) Endocrine Endocrine: Denies fatigue Allergic/Immunologic Allergic/Immunologic: Reports throat swelling and Denies wheezing [facility] Social History Smoking/Tobacco Use Status: Never Drug use: Never Do you feel safe at home: Yes Do you feel safe in your relationship?: Yes Exam Narrative Exam Narrative: CONST: Ill-appearing, well hydrated. Alert and alert. HENMT: Head nomocephalic, normal to inspection. Atraumatic. Hearing grossly normal. TMs appear normal bilaterally. Pharyngeal erythema bilaterally with mild swelling. No significant uvula edema. No significant tonsillar swelling or exudate. EYES: General normal appearance. Alignment normal. Eyelids normal. Conjunctiva normal. NECK: Normal visual inspection. FROM. Trachea midline. No Midline tenderness. Cervical lymphadenopathy noted bilaterally anteriorly. CHEST: Normal insepection of the chest. RESP: Normal respiratory effort. Speaking full sentences. No cough. No audible wheezing. No retractions. Breath sounds clear to auscultation bilaterally, full breath sounds equal bilaterally CARDIO: No JVD. No murmurs, regular rate and rhythm. Course Vital Signs Vital signs: Vital Signs Temperature 36.4 C L 07/19/19 09:44 Pulse 101 H 07/19/19 09:44 Respiratory Rate 18 07/19/19 09:44 Blood Pressure 122/82 07/19/19 09:44 Pulse Oximetry 98 07/19/19 09:44 Temperature 36.4 C L 07/19/19 09:44 Temperature Source Skin 07/19/19 09:44 Pulse 101 H 07/19/19 09:44 Respiratory Rate 18 07/19/19 09:44 Respiratory Effort Non-Labored 07/19/19 09:49 Blood Pressure 122/82 07/19/19 09:44 Blood Pressure Position Sitting 07/19/19 09:44 Pulse Oximetry 98 07/19/19 09:44 Oxygen Delivery Method Room Air 07/19/19 09:44 Oxygen Flow Rate 0 07/19/19 09:44 Pain Level 9 07/19/19 09:44 Lab/Test Results Lab/Test Results: POC Strep Test-ARELY(Rapid) Start: 07/19/19 09:55 Freq: Status: Active Protocol: Document 07/19/19 10:09 (Rec: 07/19/19 10:10 [id number]) Strep test-ARELY(Rapid)-POC POC-Strep test-ARELY (Rapid) Positive POC-Strep test-ARELY (Rapid) Positive
[2019-07-19 10:44] VITALS: BP 131/89; PULSE 94; RESP 18; TEMP 36.9; O2SAT 98
[2019-07-19] MEDS: Penicillin V POTASSIUM 500 MG TAB PO (10:45)
[2019-07-19] MEDS: Acetaminophen 500 MG TAB 1000 MG PO (10:45)
== END 2019-07-19 10:50 | disposition home or self-care (01) ==
PROVIDERS: Emergency Provider Physician Assistant; PCP Nurse Practitioner Family
DX: J02.0 Streptococcal pharyngitis (principal); R11.0 Nausea
CPT/HCPCS: 87880; 99283

== ENCOUNTER 2019-09-01 19:45 | Emergency (ER) | payer MEDICAID, SELFPAY ==
[2019-09-01 19:49] VITALS: BP 137/81; PULSE 85; RESP 20; TEMP 36.3; O2SAT 97
[2019-09-01] MEDS: Normal Saline 500 ML IV (20:23)
--- NOTE | 2019-09-01 20:23 | W.ED.GENAD ---
Discharge Plan Disposition Patient Disposition: HOME Condition: Good Discharge Details Chief Complaint: Abd Prob Clinical Impression: Bacterial vaginosis, Acute epigastric pain, Mass of uterus Primary Care Provider: Joanna Minor ED Provider: Lance Echeverria Home Meds and New Rx's Prescriptions: New doxycycline hyclate 100 mg tablet 100 mg PO BID Qty: 20 RF: 0 metronidazole 0.75 % gel 1 appful VG BID 5 Days Qty: 70 RF: 0 No Action buspirone 15 MG tablet 10 mg PO BID RF: 0 ibuprofen 200 mg Tablet 600 mg PO PRN PRNRF: 0 Discharge Instructions Instructions: Epigastric Pain (ED), Pelvic Pain (ED) Additional Instructions: At this time I feel there were few different issues going on. I feel it is likely that you have a mild gastric ulcer or gastritis causing your pain in your left upper quadrant of your abdomen. Please avoid any spicy foods, tomato-based products, or citrus foods. Please stick with a bland diet of rice applesauce bananas and mashed potatoes. Please take the Carafate, as well as Maalox or Pepto-Bismol to help with this. In regards to the lower abdominal pain there appears to be a sort of cyst or small abnormality on your uterus. This is unlikely to be an infection, however out of an abundance of precaution we will recommend treating with the antibiotic doxycycline. Please take this with food, and as directed. You will be contacted by OB for your follow-up appointment. If you do not hear from them shortly, please contact the number provided. You also have bacterial vaginosis, please take the metronidazole cream as directed to help with this. If you notice any worsening of your symptoms, or any new symptoms such as vomiting, diarrhea, fever, chills, shortness of breath, chest pain, numbness, weakness, or fainting , please return immediately to the emergency department for reevaluation. Please follow up with your primary care provider as soon as possible for reassessment and reevaluation. As always, it was a pleasure participating in your medical care today. Referrals: Joanna Minor [Primary Care Provider] - Giacomo James MD [MD CONSULTING PHYSICIAN] - Medical Decision Making This is a pleasant 43-year-old female who presents today for evaluation of abdominal pain for the last week. Patient states that the pain is contraction-like in nature similar to , she feels that there is something kicking around inside. No red flags of vomiting or diarrhea. test was negative at home. No foreign travel or significant previous surgeries aside for . Physical exam demonstrates notable tenderness in the left lower and right lower quadrants of the abdomen. Patient is refusing pain medications, but will except Bentyl. Differential is broad but includes diverticulitis, appendicitis, or less likely pelvic pathology. She has had no vaginal discharge to speak of, and denies any pelvic pain. We will get a CT scan, labs, rehydrate and reassess. 11:[address] scan has returned, no evidence of significant abnormality is submitted for 1.7 x 1.7 x 1.5 hypoattenuation in the anterior wall of the lower uterine segment adjacent to the cervix, differential per radiology includes large nabothian cyst with fluid density in the expanded scar. Vaginal exam was performed with female nurse Crystal at bedside, no significant cervical motion tenderness, no significant abnormality on vaginal exam. Cultures were sent but positive for bacterial vaginosis, negative for trichomoniasis or yeast. The patient has continued to refuse any pain medications. She is refused GI cocktail, and other medication alternatives. Pain appears to be stable, repeat exam shows no signs of an acute surgical abdomen. Patient's laboratory work-up demonstrates a normal white count, normal lactate, normal electrolytes, urinalysis is negative for infection. We will send for gonorrhea and chlamydia. We will treat with Rocephin, azithromycin. I did contact obstetrics and spoke with Dr. James, he feels that it is unlikely that the nabothian cyst is causing the pain, however he does recommend that out of an abundance of precaution that we treat with an antibiotic for potential infection. We will give Rocephin and azithromycin in conjunction with doxycycline. He recommends close follow-up with OB shortly. No signs of appendicitis or diverticulitis on CT scan, no other acute abnormality. No clinical evidence of ovarian torsion. At this time I do feel that the patient is also suffering from a gastritis or gastric ulcer. She still refuses the GI cocktail at this time. With no signs of acute life-threatening etiology, I do feel that she can be safely discharged home with close follow-up. Discussed red flags which to return, and the importance of close follow-up with OB. I have extensively reviewed the treatment plan and discharge instructions with the patient. I have addressed all patient concerns at this time. The patient was made aware of what symptoms to monitor for that would warrant a return to the emergency department. Discussed the plan with the patient, they demonstrate verbal understanding and agreement with our assessment and plan at this time. FINDINGS: Lungs: Lung bases clear. Liver: Normal appearing liver. Gallbladder and bile ducts: Normal appearing gallbladder. No calcified gallstones. No biliary dilatation. Pancreas: Normal appearing pancreas. Spleen: Normal appearing spleen. Adrenals: Normal appearing adrenal glands. Kidneys and ureters: Normal appearing kidneys. No hydronephrosis. Stomach and bowel: No oral contrast. Stomach partially distended with ingested material. No small bowel dilatation to suggest obstruction. Normal-appearing colon. No evidence of diverticulitis or colitis. Appendix: Normal appendix. Intraperitoneal space: No gross ascites or free air. Vasculature: Normal caliber abdominal aorta. Lymph nodes: No pathologically enlarged mesenteric, retroperitoneal, or pelvic sidewall lymph nodes. Bladder: Normal appearing urinary bladder. Reproductive: Anteverted uterus, normal in size. 1.7 cm by 1.7 cm by 1.5 cm focus of hypoattenuation in the anterior wall of the lower uterine segment adjacent to the cervix, possibly a large nabothian cyst or fluid density in the expected location of the Caesarean scar. Comparison with prior imaging recommended. Normal-sized left ovary. Right ovary partially obscured but normal in size. Bones/joints: No acute fracture seen among the bones of the abdomen or pelvis. Prominent discogenic degeneration at L5-S1. Soft tissues: No significant ventral or inguinal hernia. IMPRESSION: 1. No acute bowel pathology demonstrated. 2. 1.7 cm by 1.7 cm by 1.5 cm focus of hypoattenuation in the anterior wall of the lower uterine segment adjacent to the cervix, possibly a large nabothian cyst or fluid density in the expected location of the Caesarean scar. Comparison with prior imaging recommended. Thank you for allowing us to participate in the care of your patient. Dictated and Authenticated by: Fortino Morgan MD 09/01/2019 9:07 PM Eastern Time ([place] & [place]) HPI General Date/Time Provider Initiated Documentation: 09/01/19 19:54. HPI Narrative: This is a 43-year-old female with no significant past medical history except for anxiety who presents today for evaluation of abdominal pain. The patient states that for the last week she has had crampy contraction-like abdominal pain. She is taken a test that was negative but she feels like there is something inside of her that is kicking. Pain is made worse after she eats, however there does not appear to be any specific aggravating or relieving component. She denies any vomiting or diarrhea and has been eating regularly. She denies any blood in her stool. She denies any vaginal discharge, fever or chills. She denies any complaints of numbness tingling or weakness. She denies any previous abdominal surgeries aside for C-sections. No other complaints at this time. Related Data Home Medications Medication Instructions Recorded Confirmed buspirone 10 mg PO BID 02/03/13 09/01/19 ibuprofen 600 mg PO PRN PRN 07/19/19 09/01/19 doxycycline hyclate 100 mg PO BID #20 tab 09/01/19 metronidazole 1 appful VG BID 5 Days #70 gm 09/01/19 Previous Rx's Medication Instructions Recorded doxycycline hyclate 100 mg PO BID #20 tab 09/01/19 metronidazole 1 appful VG BID 5 Days #70 gm 09/01/19 Allergies Allergy/AdvReac Type Severity Reaction Status Date / Time bee pollen [Bee Pollen] Allergy Intermediate Swelling/Ed Unverified 09/01/19 19:52 ken General Stated Complaint: Abd Prob KATIE: 3 Review of Systems All systems reviewed & are unremarkable except as noted in HPI and below PFSH Social History Smoking/Tobacco Use Status: Never Drug use: Never Do you feel safe at home: Yes Do you feel safe in your relationship?: Yes Exam Narrative Exam Narrative: 1.Const: Well-nourished, Well-developed, appearing stated age 2.Eyes: PERRL, no conjunctival injection, and symmetrical lids. 3.ENT: Atraumatic external nose and ears. Moist MM. Neck: Symmetric, trachea midline, No thyromegaly. 4.CVS: +S1/S2, No murmurs or gallops. Peripheral pulses 2+ and equal in all extremities. Brisk capillary refill in all extremities. 5.RESP: Unlabored respiratory effort. Clear to auscultation bilaterally. No wheezes rales or rhonchi 6.GI: Mild distention, generalized tenderness throughout, however significant tenderness in the right lower and left lower quadrants of the abdomen. No pain in the epigastric region, negative Pedro sign. 7.MSK: Normocephalic/Atraumatic, Extremities w/o deformity or ttp No cyanosis or clubbing, Normal movement of all extremities 8.Skin: Warm, Dry. No rashes or lesions. 9.Neuro: long term care social worker II-XII grossly intact. Sensation grossly intact, no focal neurologic deficits. 10.Psych: (AAO) x3. Appropriate mood and affect Course Vital Signs Vital signs: Vital Signs Temperature 36.3 C L 09/01/19 19:49 Pulse 85 09/01/19 19:49 Respiratory Rate 09/01/19 19:49 Blood Pressure 137/81 09/01/19 19:49 Pulse Oximetry 97 09/01/19 19:49 Temperature 36.3 C L 09/01/19 19:49 Temperature Source Temporal Artery Scan 09/01/19 19:49 Pulse 85 09/01/19 19:49 Respiratory Rate 09/01/19 19:49 Blood Pressure 137/81 09/01/19 19:49 Pulse Oximetry 97 09/01/19 19:49 Oxygen Delivery Method Room Air 09/01/19 19:49 Oxygen Flow Rate 0 09/01/19 19:49 Pain Level 8 09/01/19 19:49
[2019-09-01 20:27] LABS: Abs Immature Grans 0.02 k/cumm (0.0-0.09); Absolute Basophil Count 0.02 k/cumm (0.0-0.2); Absolute Eosinophil Count 0.07 k/cumm (0.0-0.7); Absolute Lymphocyte Count 3.64 k/cumm (1.2-3.4); Absolute Monocyte Count 0.75 k/cumm (0.11-0.7); Absolute Neutrophil Count 4.06 k/cumm (1.2-6.7); Basophils % 0.2; Eosinophils % 0.8; HCT 43.6 % (36.0-46.0); HGB 14.1 g/dL (12.0-15.5); Immature Grans % 0.2 %; Lymphocytes % 42.5; Mean Corp. HGB Concentration 32.3 g/dL (32.0-36.0); Mean Corpuscular Hemoglobin 29.6 pg (27.0-33.0); Mean Corpuscular Volume 91.4 fL (80-95); Mean Platelet Volume 9.1 fL (8.0-11.0); Monocytes % 8.8; Neutrophils % 47.5; Platelet Count 316 x1000/uL (130-400); RBC 4.77 m/cumm (4.00-5.20); RBC Distribution Width 14.4 % (11.7-14.6); White Blood Cell Count 8.56 k/cumm (4.4-10.8)
[2019-09-01] MEDS: Dicyclomine 20 MG TAB PO (20:30)
[2019-09-01 20:33] LABS: Bilirubin Negative (Negative); Blood Trace-intact (Negative); Clarity Clear (Clear); Glucose Negative (Negative); Ketones Negative (Negative); Leukocyte Esterase Negative (Negative); Nitrite Negative (Negative); pH 7.5 (5-8)
[2019-09-01] MEDS: Omnipaque 350 MG/ML 100 ML BTL IJ (20:35)
--- NOTE | 2019-09-01 20:36 | DI.CT_ITS ---
EXAM: CT ABDOMEN PELVIS W CLINICAL HISTORY: RLQ and LLQ abdominal pain TECHNIQUE: Post IV contrast. Without oral contrast. COMPARISON: No exams were available for comparison FINDINGS: The lung bases are clear. The heart size is normal. The liver, gallbladder, spleen, pancreas, kidn eys and adrenals as well as urinary bladder are unremarkable. The uterus appears somewhat enlarged a nd shows a lobulated contour which may indicate presence of small fibroids. There is a cystic area i n the region of the cervix, likely a nabothian cyst. No ovarian cyst or mass is seen. There is no f ree air or free fluid. The appendix appears normal. There is no bowel dilatation or wall thickening . Degenerative disc changes are seen at L5-S1. The aorta is normal in diameter. IMPRESSION: No acute abnormality. Mildly enlarged uterus. Nabothian cyst.
[2019-09-01] MEDS: Normal Saline - Diluent 50 ML VIAL IV (20:42)
[2019-09-01 20:44] LABS: Bacteria Negative HPF (Negative); C & S Indicated? No/Sq. Contamination; Casts Negative LPF (Negative); Crystals Negative HPF (Negative); Epithelial Cells Many HPF (Negative); Mucus Negative (Negative); Other Cells Negative (Negative)
[2019-09-01] MEDS: Normal Saline Flush 10 ML SYR IVP (20:44)
[2019-09-01 20:55] LABS: ALT 39 U/L (14-59); AST 33 U/L (15-37); Albumin 3.3 g/dL (3.4-5.0); Alkaline Phosphatase 87 U/L (46-116); Anion Gap 7.1 mmol/L (3-11); BUN 11 mg/dL (7-18); Bilirubin, Total 0.6 mg/dL (0.2-1.0); CO2 29.9 mmol/L (21.0-32.0); CREATININE 1.05 mg/dL (0.55-1.02); Calcium 8.7 mg/dL (8.5-10.1); Chloride 103 mmol/L (98-107); Estimated GFR 57.47 (mL/min/1.73m2); Glucose 99 mg/dL (74-106); Lipase 244 U/L (73-393); Potassium 3.5 mmol/L (3.5-5.1); Sodium 140 mmol/L (136-145); Total Protein 7.8 g/dL (6.4-8.2)
--- NOTE | 2019-09-01 21:07 | DI.VRAD_ITS ---
PROCEDURE INFORMATION: Exam: CT Abdomen And Pelvis With Contrast Exam date and time: 09/01/2019 8:33 PM Age: 43 years old Clinical indication: Localized; Prior surgery; Surgery date: 6+ months; Surgery type: C section; Patient HX: Lower abdominal pain for 1 week TECHNIQUE: Imaging protocol: Computed tomography of the abdomen and pelvis with intravenous contrast. Radiation optimization: All CT scans at this facility use at least one of these dose optimization techniques: automated exposure control; mA and/or kV adjustment per patient size (includes targeted exams where dose is matched to clinical indication); or iterative reconstruction. Contrast material: OMNIPAQUE 350; Contrast volume: 100 ml; Contrast route: IV RAC; COMPARISON: No relevant prior studies available. FINDINGS: Lungs: Lung bases clear. Liver: Normal appearing liver. Gallbladder and bile ducts: Normal appearing gallbladder. No calcified gallstones. No biliary dilatation. Pancreas: Normal appearing pancreas. Spleen: Normal appearing spleen. Adrenals: Normal appearing adrenal glands. Kidneys and ureters: Normal appearing kidneys. No hydronephrosis. Stomach and bowel: No oral contrast. Stomach partially distended with ingested material. No small bowel dilatation to suggest obstruction. Normal-appearing colon. No evidence of diverticulitis or colitis. Appendix: Normal appendix. Intraperitoneal space: No gross ascites or free air. Vasculature: Normal caliber abdominal aorta. Lymph nodes: No pathologically enlarged mesenteric, retroperitoneal, or pelvic sidewall lymph nodes. Bladder: Normal appearing urinary bladder. Reproductive: Anteverted uterus, normal in size. 1.7 cm by 1.7 cm by 1.5 cm focus of hypoattenuation in the anterior wall of the lower uterine segment adjacent to the cervix, possibly a large nabothian cyst or fluid density in the expected location of the Caesarean scar. Comparison with prior imaging recommended. Normal-sized left ovary. Right ovary partially obscured but normal in size. Bones/joints: No acute fracture seen among the bones of the abdomen or pelvis. Prominent discogenic degeneration at L5-S1. Soft tissues: No significant ventral or inguinal hernia. IMPRESSION: 1. No acute bowel pathology demonstrated. 2. 1.7 cm by 1.7 cm by 1.5 cm focus of hypoattenuation in the anterior wall of the lower uterine segment adjacent to the cervix, possibly a large nabothian cyst or fluid density in the expected location of the Caesarean scar. Comparison with prior imaging recommended. Dictated and Authenticated by: Fortino Morgan MD. Ordering:ALETA Lucas MD
[2019-09-01] MEDS: ACETAMINOPHEN 1,000 MG/100 ML BTL 400 MG IVPB (21:43)
[2019-09-01] MEDS: Ketorolac 30 MG/ML VIAL IVP (21:44)
[2019-09-01] MEDS: Azithromycin 250 MG TAB 1000 MG PO (22:03)
[2019-09-01 23:14] VITALS: BP 137/81; PULSE 85; RESP 20; TEMP 36.3; O2SAT 97
--- NOTE | 2019-09-02 17:16 | NUR.NOTE ---
Referral faxed to [facility].Nursing Note:
[2019-09-03 13:09] LABS: Chlamydia Result Negative (Negative); GC Result Negative (Negative)
== END 2019-09-01 23:15 | disposition home or self-care (01) ==
PROVIDERS: Emergency Provider Student in an Organized Health Care Education/Training Program; PCP Nurse Practitioner Family
DX: N76.0 Acute vaginitis (principal); B96.89 Other specified bacterial agents as the cause of diseases classified elsewhere; R10.12 Left upper quadrant pain; R10.30 Lower abdominal pain, unspecified
CPT/HCPCS: 36415; 80053; 81025; 83690; 87491; 87591; 96361; 96365; 96375; 99285; 74177; 81003; 81015; 83605; 85025; 87480; 87510; 87660; 99284; J0131; J0696; J1885; J3490

== ENCOUNTER 2020-04-15 01:10 | Outpatient (CLI) | payer MEDICAID, SELFPAY ==
--- NOTE | 2020-04-15 | DI.US_ITS ---
EXAM: US THYROID CLINICAL HISTORY: THYROID NODULE,E04.1. TECHNIQUE: Ultrasound thyroid performed using standard protocol. COMPARISON: No exams were available for comparison FINDINGS: ISTHMUS: 4 mm RIGHT LOBE: Size: 4.1 x 1.4 x 1.5 cm Echogenicity: Normal. Vascularity: Normal. Nodules: There are 2 nodules less than 5 mm in size. No suspicious nodules are identified. LEFT LOBE: Size: 4.4 x 1.1 x 1.6 cm Echogenicity: Normal. Vascularity: Normal. Nodules: Cystic nodule less than 3 mm. No suspicious nodules are identified. OTHER FINDINGS: None. IMPRESSION: No suspicious thyroid nodules. DATA REPOSITORY:
== END 2020-04-15 01:30 ==
PROVIDERS: PCP Nurse Practitioner Family; Visit Provider Family Medicine
DX: E04.2 Nontoxic multinodular goiter (principal)
CPT/HCPCS: 76536

== ENCOUNTER 2020-06-24 14:11 | Outpatient (REF) | payer MEDICAID, SELFPAY ==
[2020-06-27 16:34] LABS: COVID-19 RT-PCR Result NEGATIVE (Negative)
== END 2020-06-24 14:31 ==
LOC: NCHCN 14:11
PROVIDERS: PCP Nurse Practitioner Family; Visit Provider Nurse Practitioner Family
DX: Z20.828 Contact with and (suspected) exposure to other viral communicable diseases (principal)
CPT/HCPCS: U0003

== ENCOUNTER 2020-07-29 14:40 | Emergency (ER) | payer MEDICAID, SELFPAY ==
[2020-07-29] VITALS (66 sets, daily range): BP systolic 102–151; BP diastolic 51–91; PULSE 68–102; RESP 12–26; TEMP 36.6; O2SAT 93–99
--- NOTE | 2020-07-29 14:30 | DI.RAD_ITS ---
EXAM: XR CHEST 2V PA LATERAL CLINICAL HISTORY: Chest pain. TECHNIQUE: 2D digital imaging was performed. COMPARISON: CR XR scapula LT from 09/08/2018 FINDINGS: Heart size is normal. The mediastinum is not widened. Left lung is clear. Platelike atelectasis right middle lobe. No pleural effusions. Pneumothorax. IMPRESSION: Platelike atelectasis right middle lobe. DATA REPOSITORY: RADIATION DOSE DELIVERED:
--- NOTE | 2020-07-29 14:30 | RT.EKG_ITS ---
APPROVED REPORT Exam: Resting ECG Patient Location: E HR:86 bpm ECG Measurements Heart Rate 86 AXIS RI 138 P 5 QRSd 80 QRS -10 QT 346 T 39 QTc 415 Conclusion Sinus rhythm...normal P axis, V-rate 60- 99
[2020-07-29 15:00] LABS: Abs Immature Grans 0.02 10^3/uL (0.0-0.06); Absolute Basophil Count 0.01 10^3/uL (0.0-0.2); Absolute Eosinophil Count 0.04 10^3/uL (0.0-0.7); Absolute Lymphocyte Count 2.56 10^3/uL (1.2-3.4); Absolute Monocyte Count 0.67 10^3/uL (0.1-0.8); Absolute Neutrophil Count 5.86 10^3/uL (1.2-6.7); Basophils % 0.1; Eosinophils % 0.4; HCT 45.3 % (36.0-46.0); HGB 14.5 g/dL (11.2-15.7); Immature Grans % 0.2; Lymphocytes % 27.9; MCH 28.7 pg (27.0-33.0); MCV 89.5 fL (80-95); Monocytes % 7.3; Neutrophils % 64.1; Nucleated RBC 0 %; Platelet Count 340 10^3/uL (130-400); RBC 5.06 10^6/uL (3.93-5.22); RDW 12.8 % (11.7-14.6); WBC 9.16 10^3/uL (4.4-10.8)
--- NOTE | 2020-07-29 15:01 | ED.GENADUL_ITS ---
Discharge Plan Disposition Patient Disposition: HOME Condition: Stable Discharge Details Clinical Impression: Chest pain, Hypokalemia Primary Care Provider: Natalie Chirinos ED Provider: Eva Vidal Home Meds and New Rx's Prescriptions: Continued buspirone 15 MG tablet 10 mg PO TID RF: 0 Discharge Instructions Instructions: Chest Pain (ED), Hypokalemia (ED) Additional Instructions: Your EKG and cardiac markers are reassuring today. However, I would like for you to have further evaluation with a stress test. As we discussed, if you have worsening symptoms such as increased chest pain, shortness of breath, difficulty breathing, nausea or other new/worsening symptoms please seek care urgently once again. Please follow up with primary care in one week. Referrals: Natalie Chirinos [Primary Care Provider] - Discharge Data Discharge Date/Time-TO BE ENTERED AT DEPARTURE: 07/29/20 19:20 Medical Decision Making <Elin Jim - Last Filed: 07/30/20 08:32> 43-year-old female presents to the ER with chest pain x24 hours. Associated dizziness, nausea and bilateral arm tingling. Work-up ordered including CBC, CMP, serial troponins, chest x-ray, nitro sublingual x3 as needed, aspirin 324 mg. PE ruled out by PERC score which is negative. Heart score at this time is a 2. Patient's chest pain came down from a 5 to a 3 after sublingual nitro x2, she is complaining of dizziness at this time. Vitals are stable. Initial work-up is within normal limits initial troponin is within normal limits. At this time care is to be handed off to oncoming provider BREANNE Perkins, discussed case in details with her pending serial troponin and disposition. At this time I do feel that patient could be discharged home pending negative troponin with close follow-up with outpatient stress test and cardiology follow- up possibly. <BREANNE Celestin - Last Filed: 07/29/20 20:34> Care transition to myself from Angi Howard NP. Please see her initial note regarding history, physical exam and presentation. In brief, patient is a pleasant 44-year-old female presenting today with chief complaint of chest pain. Patient had not had symptoms like this historically. She states the pain began yesterday when running errands. States that symptoms were maximal when she was cooking and that she had to stop cooking and rest for symptoms to resolve. She reports that today she noted some tingling in her bilateral hands. Patient's initial EKG and troponin were normal. Care transition myself with a repeat troponin pending. Repeat troponin within normal limits. Patient I discussed her risk factors further. Her heart score is 2. This primarily based on her moderatly concerning history and risk factors. Patient does not have risk factors herself, her father did pass a young age, in his early 50s, secondary to MRI. Patient did respond to nitroglycerin while here. She denies discussed disposition at length. I did offer admission as I am concerned regarding her family history as well as her good response to nitroglycerin. At this point, the patient reports that she is feeling well and would like to be able to be discharged home. She does agree to close follow-up as well as outpatient stress testing. She is able to return she develops any new or worsening symptoms. We did discuss these at length and I also advised she may return anytime for further evaluation or inpatient admission. She voiced understanding. Referral was sent for stress testing. She will contact her primary care tomorrow morning. All the questions and concerns were addressed and she is in agreement this plan. HPI <Elinfran Jim - Last Filed: 07/30/20 08:32> General Mode of arrival: ambulatory . Date/Time Provider Initiated Documentation: 07/29/20 14:40 . Limitations to Documentation: no limitations . Information obtained by: patient . HPI Narrative: 43-year-old female presents to the ED with chief complaint of chest pain which began yesterday. She desc ribes left-sided chest pain which radiates around her right with some arm tingling which has been constant. She describes it as sharp. Associated with dizziness and nausea. She has no past medical history of heart problems or lung problems. She does have some family cardiac history on her father's side. Upon initial exam chest pain is nonreproducible to palpation, she is alert and oriented x3, Related Data Home Medications Medication Instructions Recorded Confirmed buspirone 10 mg PO TID 02/03/13 07/29/20 Allergies Allergy/AdvReac Type Severity Reaction Status Date / Time bee pollen [Bee Pollen] Allergy Intermediate Swelling/Ed Unverified 09/01/19 19:52 ken General Stated Complaint: Chest Pain KATIE: 3 Review of Systems <Elin Jim - Last Filed: 07/30/20 08:32> Narrative: Constitutional: Negative for weight loss, alert and oriented, well groomed, obese body habitus, appears comfortable. HEENT: Denies trauma, headaches, blurry vision, nasal discharge, sore throat, trouble swallowing. Chest: Denies palpitations, irregular rhythm, hypertension. Positive chest pain, constant. Respiratory: Denies Shortness of breath, cough, hemoptysis. GI: Denies abdominal pain, vomiting, diarrhea, constipation. Positive nausea. : Denies dysuria, hematuria, flank pain, rectal bleeding. Neuro: Denies dizziness, blurry vision, weakness, syncope, headache or facial numbness. Hematologic: Denies easy bruising, intolerance to heat or cold, hair loss. PFSH <Elin Jim - Last Filed: 07/30/20 08:32> Social History Smoking/Tobacco Use Status: Never Smoking risk assessment performed?: Yes Alcohol Intake: never Drug use: Never Do you feel safe at home: Yes Do you feel safe in your relationship?: Yes Exam <Elin Jim - Last Filed: 07/30/20 08:32> Narrative Exam Narrative: Constitutional: Alert and oriented x3. Appears stated age. Normal body habitus. Head: Normocephalic, no trauma. Eyes: Pupils PERRLA, Red reflex noted, EOM's intact. Eyelids symmetrical without lesions, discharge, or swelling. ENT: Bilateral TM's WNL, External ear normal to inspection, no mastoid TTP, swelling, or erythema, Nasal turbinates WNL, no nasal discharge. Normal dentition, Posterior pharynx WNL, no exudate. Chest: RRR, Normal S1, S2, distal pulses intact. Nonreproducible to palpation Resp: Lungs clear to auscultation bilaterally, no wheezes, rales, or rhonchi. Musculoskeletal: Normal gait, 5/5 strength to all four extremities. Skin: No suspicious rashes or lesions. Capillary refill less than 2 sec. trace edema bilateral extremities. Neurologic: Cranial nerves II-XII intact. Alert and oriented x 3. DTR's intact. Hematologic/Lymphatic: No ecchymosis, no lymphadenopathy. Course <Elin Jim - Last Filed: 07/30/20 08:32> Vital Signs Vital signs: Vital Signs Temperature 36.6 C 07/29/20 14:44 Pulse 97 H 07/29/20 14:44 Respiratory Rate 20 07/29/20 14:44 Blood Pressure 146/91 H 07/29/20 14:44 Pulse Oximetry 97 07/29/20 14:44 Temperature 36.6 C 07/29/20 14:44 Temperature Source Temporal Artery Scan 07/29/20 14:44 Pulse 102 H 07/29/20 14:45 Pulse 87 07/29/20 14:50 Respiratory Rate 17 07/29/20 14:50 Respiratory Effort 07/29/20 14:50 Respiratory Depth Normal 07/29/20 14:50 Respiratory Pattern Normal 07/29/20 14:50 Blood Pressure 146/91 H 07/29/20 14:45 Blood Pressure Mean 105 07/29/20 14:45 Blood Pressure Position Sitting 07/29/20 14:44 Pulse Oximetry 98 07/29/20 14:50 Oxygen Delivery Method Room Air 07/29/20 14:44 Oxygen Flow Rate 0 07/29/20 14:44 Pain Level 5 07/29/20 14:44 Sign Out <Elin Jim - Last Filed: 07/30/20 08:32> Sign Out Data: Sign Out Comment: Pending repeat Troponin and dispo, with possible outpatient stress test follow up Last updated by Elin Jim at 07/29/20 15:56
[2020-07-29] MEDS: Aspirin 81 MG CHEW 324 MG CH (15:18)
[2020-07-29 15:22] LABS: ALT 47 U/L (14-59); AST 32 U/L (15-37); Albumin 3.8 g/dL (3.4-5.0); Alkaline Phosphatase 99 U/L (46-116); BUN 15 mg/dL (7-18); Bilirubin, Total 0.9 mg/dL (0.2-1.0); CREATININE 1.07 mg/dL (0.55-1.02); Calcium 9.4 mg/dL (8.5-10.1); Chloride 100 mmol/L (98-107); Estimated GFR 55.97 (mL/min/1.73m2); Glucose 69 mg/dL (74-106); Magnesium 1.7 mg/dL (1.8-2.4); Potassium 3.3 mmol/L (3.5-5.1); Sodium 139 mmol/L (136-145); Total Protein 8.8 g/dL (6.4-8.2)
[2020-07-29 15:25] LABS: Troponin I < 0.05 ng/mL (<0.06)
[2020-07-29] MEDS: nitroGLYcerin 0.4 MG TAB SL ×2 (15:26→15:34)
[2020-07-29] MEDS: Normal Saline 1,000 ML 150 ML IV (15:30)
--- NOTE | 2020-07-29 16:44 | DI.VRAD_ITS ---
PROCEDURE INFORMATION: Exam: XR Chest, 2 Views Exam date and time: 07/29/2020 2:46 PM Age: 44 years old Clinical indication: Other: Chest pain TECHNIQUE: Imaging protocol: XR of the chest Views: 2 views. COMPARISON: CR XR scapula LT 09/08/2018 2:40 PM FINDINGS: Lungs: The lungs are clear without opacity or suspicious parenchymal finding. Pleural space: Unremarkable. No pleural effusion. No pneumothorax. Heart/Mediastinum: Unremarkable. No cardiomegaly. Bones/joints: Unremarkable. IMPRESSION: No acute cardiopulmonary process. Dictated and Authenticated by: Elo Ferguson MD. Ordering:CHRISTIANA Worthington MD
[2020-07-29 18:15] LABS: Troponin I < 0.05 ng/mL (<0.06)
[2020-07-31 15:55] LABS: COVID-19 RT-PCR UVMMC Result Negative (Negative)
--- NOTE | 2020-07-31 18:43 | NUR.NOTE ---
spoke with pt to advise of negative COVID-19 test result CLT 07/31/20 @ 2806 Nursing Note:
== END 2020-07-29 19:20 | disposition home or self-care (01) ==
PROVIDERS: Registered Nurse Emergency; Emergency Provider Physician Assistant; PCP Family Medicine
DX: E87.6 Hypokalemia (principal); R07.9 Chest pain, unspecified; R42 Dizziness and giddiness; R11.0 Nausea; R20.2 Paresthesia of skin; Z03.818 Encounter for observation for suspected exposure to other biological agents ruled out; Z82.41 Family history of sudden cardiac death
CPT/HCPCS: 36415; 80053; 93005; 96360; 96361; 99285; U0003; 71046; 83735; 84484; 85025; 93010; 99284

== ENCOUNTER 2020-08-07 04:17 | Outpatient (CLI) | payer MEDICAID, SELFPAY | END 2020-08-07 04:37 | PROVIDERS: PCP Family Medicine; Visit Provider Physician Assistant | DX: R69 Illness, unspecified (principal) ==

== ENCOUNTER 2020-08-14 18:50 | Outpatient (REF) | payer MEDICAID, SELFPAY ==
[2020-08-14 20:38] LABS: Creatine Kinase 204 U/L (26-192)
[2020-08-14 21:18] LABS: ESR 43 mm/hr (0-20)
[2020-08-18 11:08] LABS: Lyme Ab w Rflx to Lyme Confirm Negative (Negative)
== END 2020-08-14 19:10 ==
LOC: NCHCN 18:50
PROVIDERS: PCP Family Medicine; Visit Provider Family Medicine
DX: R07.89 Other chest pain (principal); F41.9 Anxiety disorder, unspecified; M79.10 Myalgia, unspecified site
CPT/HCPCS: 82550; 85652; 87798; 86618

== ENCOUNTER 2020-11-13 16:50 | Outpatient (REF) | payer MEDICAID, SELFPAY ==
[2020-11-13 12:54] LABS: Abs Immature Grans 0.02 10^3/uL (0.0-0.06); Absolute Basophil Count 0.02 10^3/uL (0.0-0.2); Absolute Eosinophil Count 0.06 10^3/uL (0.0-0.7); Absolute Lymphocyte Count 2.25 10^3/uL (1.2-3.4); Absolute Monocyte Count 0.41 10^3/uL (0.1-0.8); Absolute Neutrophil Count 4.72 10^3/uL (1.2-6.7); Basophils % 0.3; Eosinophils % 0.8; HCT 45.5 % (36.0-46.0); HGB 14.8 g/dL (11.2-15.7); Immature Grans % 0.3; Lymphocytes % 30.1; MCH 28.8 pg (27.0-33.0); MCHC 32.5 % (32.0-36.0); MCV 88.5 fL (80-95); MPV 9.9 fL (8.0-11.0); Monocytes % 5.5; Nucleated RBC 0 %; Platelet Count 351 10^3/uL (130-400); RBC 5.14 10^6/uL (3.93-5.22); RDW 13.4 % (11.7-14.6); RDW-SD 44.1 fL; WBC 7.48 10^3/uL (4.4-10.8)
[2020-11-13 12:57] LABS: ESR 68 mm//hr (0-20)
[2020-11-13 13:16] LABS: Calculated LDL 99 mg/dL (<100); Cholesterol 166 mg/dL (<200); HDL Cholesterol 60 mg/dL (40-60); TSH (W/Ref FT4) 1.64 uIU/mL (0.36-3.74); Triglyceride 38 mg/dL (<150)
[2020-11-13 13:29] LABS: Creatine Kinase 138 U/L (26-192)
[2020-11-16 10:01] LABS: Lyme Ab w Rflx to Lyme Confirm Negative (Negative)
[2020-11-16 17:45] LABS: Anaplasma phagocytophilum Negative (Negative); B. miyamotoi PCR Negative (Negative); Babesia divergens/MO-1 Negative (Negative); Babesia duncani Negative (Negative); Babesia microti Negative (Negative); Ehrlichia chaffeensis Negative (Negative); Ehrlichia ewingii/canis Negative (Negative); Ehrlichia muris eauclairensis Negative (Negative)
== END 2020-11-13 16:51 | disposition home or self-care (01) ==
LOC: NCHCN 16:50
PROVIDERS: PCP Family Medicine; Visit Provider Family Medicine
DX: M79.10 Myalgia, unspecified site (principal); F41.9 Anxiety disorder, unspecified; Z13.220 Encounter for screening for lipoid disorders; Z00.00 Encounter for general adult medical examination without abnormal findings
CPT/HCPCS: 80061; 82550; 85652; 87798; 84443; 85025; 86618

== ENCOUNTER 2020-11-27 11:05 | Outpatient (REF) | payer MEDICAID, SELFPAY ==
--- NOTE | 2020-11-27 10:15 | PAPFT_PTH ---
PATIENT: Bernadette Padilla LOC: [facility]#:[id number] AGE/SX: 45/F ROOM: RE11/27/[address]: Luis Finn : 1975 BED: DIS: 11/27/2020 SPEC #: [id number] RECD: 11/27/20 13:12 STATUS: GENARO REJohn #: [id number] EDILBERTO: 11/27/20 10:[address]: Luis Finn DEPT: [facility] Cytology RECD BY: Mihaela Ballesteros ENTERED: 11/27/20 13:12 SP TYPE: PAPFT OTHR DR: Natalie Chirinos Tissues: 1 - CX/ENDOCX FOR PAP SMEARS Procedures: PAP THIN PREP/UVM Screening HPV DNA PROBE Comments: [id number]
[2020-11-27 15:24] LABS: C-Reactive Protein 1.85 mg/dL (0.0-0.3)
[2020-11-29 16:31] LABS: Rheumatoid Factor <8.6 IU/mL (<12.0)
[2020-11-30 13:57] LABS: ANA Interpretation Positive (Negative); ANA Titer Pattern 1:320 Speckled
== END 2020-11-27 11:06 | disposition home or self-care (01) ==
LOC: NCHCN 11:05
PROVIDERS: PCP Family Medicine; Visit Provider Family Medicine
DX: M79.18 Myalgia, other site (principal); Z12.4 Encounter for screening for malignant neoplasm of cervix; Z01.419 Encounter for gynecological examination (general) (routine) without abnormal findings; Z11.51 Encounter for screening for human papillomavirus (HPV)
CPT/HCPCS: 88142; 86038; 86140; 86431; 87624

== ENCOUNTER 2020-12-03 01:16 | Outpatient (CLI) | payer MEDICAID, SELFPAY ==
--- NOTE | 2020-12-03 10:59 | DI.MAMMO_ITS ---
Exam(s) MAMMO SCREENING EXAM: MAMMO SCREENING CLINICAL HISTORY: SCREENING, BASELINE, Z12.31,. TECHNIQUE: Bilateral full field digital CC and MLO mammographic images were obtained with 3D tomosyn thesis and utilizing computer aided detection (CAD). COMPARISON: This is a baseline mammogram on this 45-year-old patient whose mother was diagnosed with breast cancer prior to age 50 and subsequently of metastatic breast cancer. Also multiple aunt s with breast cancer. FINDINGS: There are no significant radiograph findings in left breast. In the right breast there are 2 noncalcified slightly lobulated nodules which are probably benign lym ph nodes but should undergo baseline ultrasound, given the family history here. No malignant-appearing microcalcification groups in either breast. There is no significant architectural distortion nor skin thickening-retraction. IMPRESSION: 1. No radiographic evidence of malignancy in left breast. 2. Two benign-appearing right breast nodules which may be benign lymph nodes. However, given that th ere are no previous studies for comparison given her very significant family history I recommend righ t breast ultrasound at this time. BI-RADS Category 0 - Assessment Incomplete: Need additional imaging evaluation Breast Density - Category B - Scattered areas of fibroglandular density Breast density Category C or D implies that the patient has dense breast tissue. Dense breast tissue can make it harder to find cancer on a mammogram. Dense breast tissue is also associated with an incr eased risk of breast cancer. This information about the result of the mammogram report was provided to the patient to raise their awareness. Use this report when you speak with the patient about their risks for breast cancer, which includes their family history. At that time, you may recommend additional screening tests (Ultrasoun d or MRI) as these tests may add significant information. A negative radiographic report should not delay biopsy if a dominant or clinically suspicious mass is present. Up to ten percent of cancers are not identified on mammography. A negative report may reinforce clinical impression. Adenosis and dense breasts may obscure an underlying neoplasm. False positive reports average 6 to 10%. Patient will receive a letter notifying them of these results.
== END 2020-12-03 01:36 ==
PROVIDERS: PCP Family Medicine; Visit Provider Family Medicine
DX: Z12.31 Encounter for screening mammogram for malignant neoplasm of breast (principal); R92.8 Other abnormal and inconclusive findings on diagnostic imaging of breast; Z80.3 Family history of malignant neoplasm of breast
CPT/HCPCS: 77063; 77067

== ENCOUNTER 2020-12-11 04:16 | Outpatient (CLI) | payer MEDICAID, SELFPAY ==
--- NOTE | 2020-12-11 | DI.US_ITS ---
Exam(s) US BREAST RT LIMITED EXAM: US BREAST RT LIMITED CLINICAL HISTORY: F/U MAMMO, RT BREAST NODULES, ? LYMPH NODES TECHNIQUE: Ultrasound performed using standard protocol. COMPARISON: US US THYROID from 04/15/2020 FINDINGS: Right breast ultrasound was performed to evaluate suspected lymph nodes identified on recent mammogra m in the upper outer quadrant the right breast. Ultrasound examination shows to small nodules with a rchitecture consistent normal lymph nodes, 1 measuring about 14 millimeters in greatest diameter in t he 9 o'clock position 8 cm from the nipple and the other measuring about 8 millimeters in greatest di ameter in the 8 o'clock position about 7 centimeters from the nipple. No additional solid mass or cyst identified. IMPRESSION: Right breast nodules identified mammographically correspond to normal lymph nodes seen today at [facility] ultrasound. Follow-up mammogram recommended in 12 months. BI-RADS Cat 2 - Benign Findings DATA REPOSITORY:
== END 2020-12-11 04:36 ==
PROVIDERS: PCP Family Medicine; Visit Provider Family Medicine
DX: Z12.31 Encounter for screening mammogram for malignant neoplasm of breast (principal); R92.8 Other abnormal and inconclusive findings on diagnostic imaging of breast; N60.81 Other benign mammary dysplasias of right breast
CPT/HCPCS: 76642

== ENCOUNTER 2020-12-31 14:31 | Emergency (ER) | payer MEDICAID, SELFPAY ==
[2020-12-31 14:36] VITALS: BP 142/79; PULSE 61; RESP 16; TEMP 36.7; O2SAT 97
--- NOTE | 2020-12-31 14:53 | DI.US_ITS ---
Exam(s) US PELVIS TRANSVAGINAL EXAM: US PELVIS TRANSVAGINAL CLINICAL HISTORY: vaginal bleeding no menses 10 months TECHNIQUE: Transabdominal and transvaginal imaging was performed using standard protocol. COMPARISON: CT CT ABDOMEN PELVIS W from 09/01/2019 FINDINGS: Both transabdominal and transvaginal imaging was limited by patient body habitus. KIDNEYS: Kidneys are symmetric in size. No evidence of renal calculi. No evidence of hydronephrosis. No renal mass or cyst identified. UTERUS: Anteverted. 12.5 x 4.6 x 3.3 cm. Endometrium: 9 millimeters Myometrium: Unremarkable. Not well evaluated. No gross contour distortion. Cervix: 1.6 centimeter nabothian cyst.. OVARIES: Not well seen Right: Cyst or mass: None. Left: Cyst or mass: None. 1.1 centimeter cystic area with calcification. CUL-DE-SAC: Free fluid: None. IMPRESSION: Limited exam due to patient body habitus. The uterus is mildly enlarged. Nabothian cyst is seen. T he ovaries are not visualized. A small cystic areas noted in the left adnexal region. DATA REPOSITORY:
[2020-12-31 15:07] LABS: Abs Immature Grans 0.04 10^3/uL (0.0-0.06); Absolute Basophil Count 0.01 10^3/uL (0.0-0.2); Absolute Eosinophil Count 0.07 10^3/uL (0.0-0.7); Absolute Lymphocyte Count 2.72 10^3/uL (1.2-3.4); Absolute Monocyte Count 0.85 10^3/uL (0.1-0.8); Absolute Neutrophil Count 7.47 10^3/uL (1.2-6.7); Basophils % 0.1; Eosinophils % 0.6; HCT 41.1 % (36.0-46.0); HGB 13.5 g/dL (11.2-15.7); Immature Grans % 0.4; Lymphocytes % 24.4; MCH 28.7 pg (27.0-33.0); MCHC 32.8 % (32.0-36.0); MCV 87.3 fL (80-95); MPV 9.4 fL (8.0-11.0); Monocytes % 7.6; Neutrophils % 66.9; Nucleated RBC 0 %; Platelet Count 274 10^3/uL (130-400); RBC 4.71 10^6/uL (3.93-5.22); RDW 13.5 % (11.7-14.6); RDW-SD 43.6 fL; WBC 11.16 10^3/uL (4.4-10.8)
[2020-12-31 15:26] LABS: ALT 29 U/L (14-59); AST 25 U/L (15-37); Albumin 3.4 g/dL (3.4-5.0); Alkaline Phosphatase 96 U/L (46-116); BUN 16 mg/dL (7-18); Bilirubin, Total 0.9 mg/dL (0.2-1.0); CREATININE 0.8 mg/dL (0.55-1.02); Chloride 103 mmol/L (98-107); Glucose 90 mg/dL (74-106); Potassium 3.7 mmol/L (3.5-5.1); Sodium 141 mmol/L (136-145); Total Protein 7.9 g/dL (6.4-8.2)
--- NOTE | 2020-12-31 16:11 | W.ED.GENAD ---
Discharge Plan Disposition Patient Disposition: HOME Condition: Good Discharge Details Clinical Impression: H/O menorrhagia Primary Care Provider: Natalie Chirinos ED Provider: Mihaela Vail Home Meds and New Rx's Prescriptions: New medroxyprogesterone 5 mg tablet 5 mg PO DAILY Qty: 20 RF: 0 No Action buspirone 15 MG tablet 10 mg PO TID RF: 0 amitriptyline 25 mg tablet 25 mg PO DAILY RF: 0 escitalopram oxalate 10 mg tablet 10 mg PO DAILY RF: 0 Discharge Instructions Additional Instructions: Please follow-up with Dr. Neves, take the progesterone as prescribed Return earlier should you have new or worsening complaints including weakness, dizziness, persistent or worsening bleeding Begin the progesterone this evening Discharge Data Discharge Date/Time-TO BE ENTERED AT DEPARTURE: 12/31/20 16:44 Medical Decision Making Patient without significantly thickened endometrial stripe per radiology interpretation of ultrasound endovaginal Patient states she is going through a pad approximately every 2 hours at this point, she feels that her cough She is hemodynamically stable and otherwise feels and appears well She feels comfortable discharge home I did discuss the case with Dr. Neves and she recommends 5 mg amended Droxia progesterone Patient does not smoke tobacco and is otherwise healthy without history of coagulopathy she will be initiated on this medication, she will also follow-up with Dr. Neves in the outpatient setting, she is encouraged to follow-up tomorrow to schedule appointment Patient will return should she continue with persistent vaginal bleeding or have any signs or symptoms related to anemia which were discussed She is discharged home in stable condition with stable vitals, ambulatory with heat Differential Diagnosis Differential Diagnosis: Dysmenorrhea, menorrhagia, , perimenopausal Medical Records Medical records reviewed: Yes I reviewed the patient's medical records. Lab Data Lab results reviewed: Yes I reviewed the patient's lab results. HPI General Mode of arrival: ambulatory. Date/Time Provider Initiated Documentation: 12/31/20 14:38. Limitations to Documentation: no limitations. Information obtained by: patient. HPI Narrative: This 45-year-old female presents with report of vaginal bleeding. She has been going through a pad every several hours. She denies any weakness or dizziness. She states she has not had a menses for approximately 10months. She assumes she was menopausal. She denies chance of . Patient denies any weakness or dizziness. She denies any risk of sexually transmitted disease. She denies any fever or chills. She denies any real pain complaints. She has not had any clots with menstruation. Her symptoms reportedly began yesterday while she was standing in line at the store. 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: 3 Review of Systems Narrative: Review of systems obtained x7 aside from where indicated in HPI [facility] Social History Smoking/Tobacco Use Status: Never Smoking risk assessment performed?: Yes Alcohol Intake: never Drug use: Never Do you feel safe at home: Yes Do you feel safe in your relationship?: Yes Exam Const Orientation: alert and oriented x3 Chest Chest: normal inspection of the chest Resp Effort & Inspection: normal respiratory effort Cardio Rate: regular rate GI Other: No abdominal tenderness Skin Other: No pallor Neuro General: patient alert and patient oriented x3 Course Vital Signs Vital signs: Vital Signs Temperature 36.7 C 12/31/20 14:36 Pulse 61 12/31/20 14:36 Respiratory Rate 16 12/31/20 14:36 Blood Pressure 142/79 H 12/31/20 14:36 Pulse Oximetry 97 12/31/20 14:36 Temperature 36.7 C 12/31/20 14:36 Temperature Source Temporal Artery Scan 12/31/20 14:36 Pulse 61 12/31/20 14:36 Respiratory Rate 16 12/31/20 14:36 Respiratory Effort 12/31/20 14:45 Blood Pressure 142/79 H 12/31/20 14:36 Blood Pressure Position Sitting 12/31/20 14:36 Pulse Oximetry 97 12/31/20 14:36 Oxygen Delivery Method Room Air 12/31/20 14:36 Oxygen Flow Rate 0 12/31/20 14:36 Pain Level 0 12/31/20 15:02 Lab/Test Results Lab/Test Results: Laboratory Tests Range/Units 12/31/20 12/31/20 14:47 14:47 WBC (4.4-10.8) 10^3/uL 11.16 H RBC (3.93-5.22) 10^6/uL 4.71 Hgb (11.2-15.7) g/dL 13.5 Hct (36.0-46.0) % 41.1 MCV (80-95) fL 87.3 MCH (27.0-33.0) pg 28.7 MCHC (32.0-36.0) % 32.8 RDW (11.7-14.6) % 13.5 Plt Count (130-400) 10^3/uL 274 MPV (8.0-11.0) fL 9.4 Immature Gran % 0.4 Neutrophils % 66.9 Lymphocytes % 24.4 Monocytes % 7.6 Eosinophils % 0.6 Basophils % 0.1 Nucleated RBC % % 0 Absolute Neutrophils (1.2-6.7) 10^3/uL 7.47 H Absolute Lymphocytes (1.2-3.4) 10^3/uL 2.72 Absolute Monocytes (0.1-0.8) 10^3/uL 0.85 H Absolute Eosinophils (0.0-0.7) 10^3/uL 0.07 Absolute Basophils (0.0-0.2) 10^3/uL 0.01 Sodium (136-145) mmol/L 141 Potassium (3.5-5.1) mmol/L 3.7 Chloride (98-107) mmol/L 103 Carbon Dioxide (21.0-32.0) mmol/L 29.0 Anion Gap (3-11) mmol/L 9.0 BUN (7-18) mg/dL 16 Creatinine (0.55-1.02) mg/dL 0.8 Estimated GFR/1.73 m2 (mL/min/1.73m2) >= 60.00 Glucose (74-106) mg/dL 90 Calcium (8.5-10.1) mg/dL 9.0 Total Bilirubin (0.2-1.0) mg/dL 0.9 AST (15-37) U/L 25 ALT (14-59) U/L 29 Alkaline Phosphatase (46-116) U/L 96 Total Protein (6.4-8.2) g/dL 7.9 Albumin (3.4-5.0) g/dL 3.4 POC- Test(urine) Negative
[2020-12-31 16:17] VITALS: BP 123/66; PULSE 74; RESP 18; O2SAT 95
--- NOTE | 2020-12-31 16:29 | DI.VRAD_ITS ---
PROCEDURE INFORMATION: Exam: US Pelvis Complete, Transabdominal and US Pelvis, Transvaginal Exam date and time: 12/31/2020 3:55 PM Age: 45 years old Clinical indication: Menstruation abnormalities; Excessive menstruation; Other: Last menses 10 months ago TECHNIQUE: Imaging protocol: Real-time transabdominal and transvaginal pelvic ultrasound (complete) with image documentation. Transvaginal imaging was used for better evaluation of the endometrium, adnexa, and/or cervix. COMPARISON: CT ABDOMEN PELVIS W 09/01/2019 8:36 PM FINDINGS: Uterus/cervix: Nabothian cysts, including a 16 mm complex nabothian cyst. Endocervical fluid. Uterus measures 12.5 x 4.6 x 3.3 cm. Endometrium measures 9 mm in diameter. Right adnexa: Nonvisualization of the right ovary. Left adnexa: Nonvisualization of the left ovary. Bilobed 13 x 8 by 11 mm cystic structure with a punctate internal calcification in the left adnexal region. Intraperitoneal space: No significant free fluid. Urinary bladder: Nondistended bladder. Right kidney: Right kidney measures 10.2 cm in length. Left kidney measures 11.3 cm in length. No hydronephrosis. IMPRESSION: 1. Endocervical fluid and nabothian cysts. 2. Bilobed 13 x 8 by 11 mm cystic structure with a punctate internal calcification in the left adnexal region. Dictated and Authenticated by: Star Kitchen MD. Ordering:COREY Chairez MD
== END 2020-12-31 16:44 | disposition home or self-care (01) ==
PROVIDERS: Emergency Provider Physician Assistant; PCP Family Medicine
DX: N92.0 Excessive and frequent menstruation with regular cycle (principal)
CPT/HCPCS: 36415; 80053; 81025; 86850; 86900; 86901; 99284; 76830; 76856; 85025; 99283

== ENCOUNTER 2021-06-02 15:29 | Outpatient (REF) | payer MEDICAID, SELFPAY ==
[2021-06-02 21:37] LABS: HCT 43.7 % (36.0-46.0); HGB 13.9 g/dL (11.2-15.7); MCH 28.8 pg (27.0-33.0); MCHC 31.8 % (32.0-36.0); MCV 90.7 fL (80-95); MPV 10.2 fL (8.0-11.0); Platelet Count 312 10^3/uL (130-400); RBC 4.82 10^6/uL (3.93-5.22); RDW 13.6 % (11.7-14.6); RDW-SD 45.3 fL; WBC 8.66 10^3/uL (4.4-10.8)
[2021-06-02 21:43] LABS: ESR 49 mm/hr (0-20)
[2021-06-03 08:12] LABS: Albumin 3.7 g/dL (3.4-5.0); BUN 13 mg/dL (7-18); Bilirubin, Total 0.8 mg/dL (0.2-1.0); CREATININE 0.8 mg/dL (0.55-1.02); Calcium 9.1 mg/dL (8.5-10.1); Glucose 80 mg/dL (74-106); Total Protein 7.8 g/dL (6.4-8.2)
[2021-06-03 08:13] LABS: ALT 34 U/L (14-59); AST 27 U/L (15-37); Alkaline Phosphatase 85 U/L (46-116); Chloride 103 mmol/L (98-107); Potassium 4.5 mmol/L (3.5-5.1); Sodium 141 mmol/L (136-145)
[2021-06-04 14:44] LABS: ANA Interpretation Positive (Negative); ANA Titer Pattern 1:80 Speckled
[2021-06-08 12:36] LABS: dsDNA Ab, IgG <12.3 IU/mL (<30.0)
[2021-06-08 13:25] LABS: Sm (Smith) Ab, IgG 3.9 Units (<20.0)
== END 2021-06-02 15:30 | disposition home or self-care (01) ==
LOC: NCHCN 15:29
PROVIDERS: PCP Family Medicine; Visit Provider Family Medicine
DX: M79.10 Myalgia, unspecified site (principal); E87.6 Hypokalemia
CPT/HCPCS: 80053; 85027; 85652; 86038; 86147; 86225; 86235

== ENCOUNTER → 2021-12-06 02:27 | Outpatient (CLI) | payer MEDICAID, SELFPAY | PROVIDERS: PCP Family Medicine; Visit Provider Family Medicine ==

== ENCOUNTER → 2022-01-27 08:02 | Outpatient (CLI) | payer MEDICAID, SELFPAY ==
--- NOTE | 2022-01-27 | DI.RAD_ITS ---
Exam(s) XR LUMBAR SPINE AP, LAT EXAM: XR LUMBAR SPINE AP, LAT CLINICAL HISTORY: NEUROGENIC CLAUDICATION,L3 BILAT,LOW BACK PAIN,? DYNAMIC INSTABILITY. TECHNIQUE: 2D digital imaging was performed. COMPARISON: CR LUMBAR SPINE COMPLETE from 02/05/2013 FINDINGS: Four views, compared to prior images of January 2013 No evidence of acute fracture. However, there is moderate disc space narrowing at L4-5 and anterior osseous lipping at this level now evident. No listhesis. Moderate disc space narrowing at L5 disc S 1 level appears unchanged. Bone density normal. No osseous lesions. No scoliosis. Sacroiliac join ts unremarkable. IMPRESSION: Degenerative disc disease at L4-5 level. If clinically indicated follow-up MRI can be performed DATA REPOSITORY: RADIATION DOSE DELIVERED:
== END ==
PROVIDERS: PCP Family Medicine
DX: M51.36 Other intervertebral disc degeneration, lumbar region (principal); I73.9 Peripheral vascular disease, unspecified
CPT/HCPCS: 72100

== ENCOUNTER 2022-01-27 14:01 | Outpatient (CLI) | payer MEDICAID, SELFPAY ==
[2022-01-27 14:45] LABS: ESR 57 mm/hr (0-20)
[2022-01-27 14:48] LABS: Abs Immature Grans 0.03 10^3/uL (0.0-0.06); Absolute Basophil Count 0.01 10^3/uL (0.0-0.2); Absolute Eosinophil Count 0.06 10^3/uL (0.0-0.7); Absolute Lymphocyte Count 2.52 10^3/uL (1.2-3.4); Absolute Monocyte Count 0.44 10^3/uL (0.1-0.8); Absolute Neutrophil Count 6.53 10^3/uL (1.2-6.7); Basophils % 0.1; Eosinophils % 0.6; HCT 44.4 % (36.0-46.0); HGB 14.1 g/dL (11.2-15.7); Immature Grans % 0.3; Lymphocytes % 26.3; MCHC 31.8 % (32.0-36.0); MCV 88 fL (80-95); Monocytes % 4.6; Neutrophils % 68.1; RBC 5.03 10^6/uL (3.93-5.22); RDW 14.4 % (11.7-14.6); RDW-SD 46.1 fL; WBC 9.59 10^3/uL (4.4-10.8)
[2022-01-27 16:34] LABS: Vitamin D 25 Total 22.1 ng/mL (30-100)
[2022-01-27 16:37] LABS: Hemoglobin A1C 5.7 % (<5.7)
[2022-01-27 16:40] LABS: Vitamin B12 328 pg/mL (193-986)
[2022-01-27 16:52] LABS: C-Reactive Protein 1.46 mg/dL (0.0-0.3); Creatine Kinase 146 U/L (26-192)
[2022-01-27 22:28] LABS: Thyroglobulin Antibody <15 U/mL (<=60); Thyroperoxidase Antibody 37 U/mL (<=60)
== END 2022-01-27 14:02 | disposition home or self-care (01) ==
LOC: LBO 14:01
PROVIDERS: PCP Family Medicine; Visit Provider Internal Medicine Rheumatology
DX: M79.10 Myalgia, unspecified site (principal); N95.8 Other specified menopausal and perimenopausal disorders; R53.83 Other fatigue; N92.4 Excessive bleeding in the premenopausal period; R78.89 Finding of other specified substances, not normally found in blood; R70.0 Elevated erythrocyte sedimentation rate; R35.89 Other polyuria; E55.9 Vitamin D deficiency, unspecified; R79.89 Other specified abnormal findings of blood chemistry
CPT/HCPCS: 36415; 82306; 82550; 85652; 86376; 82607; 83036; 85025; 86140

== ENCOUNTER → 2022-04-15 00:12 | Outpatient (CLI) | payer MEDICAID, SELFPAY ==
--- NOTE | 2022-04-15 10:45 | DI.MRI_ITS ---
Exam(s) MR LUMBAR SPINE WO EXAM: MR LUMBAR SPINE WO CLINICAL HISTORY: PROGRESSIVE NEUROGENIC CLAUDICATION AND ESCALATING SEVERITY OF INCONTINENCE. TECHNIQUE: Multiplanar multisequence MRI of the Lumbar spine was performed. COMPARISON: CR XR LUMBAR SPINE AP, LAT from 01/27/2022 FINDINGS: Bones: The last intervertebral disc space is designated the L5/S1 level for the numbering purpose of this examination. The vertebral body heights are well maintained. Alignment is satisfactory. The ma rrow signal characteristics are unremarkable. Cord: The conus tip ends at the T12 level. It is of normal size and signal intensity. T12-L1: No disc herniations or bulges are present. No central spinal canal or neural foraminal stenos is. L1-2: No disc herniations or bulges are present. No central spinal canal or neural foraminal stenosis . L2-3: No disc herniations or bulges are present. No central spinal canal or neural foraminal stenosis . L3-4: No disc herniations or bulges are present. Mild facet joint degenerative changes. No central spinal canal or neural foraminal stenosis. L4-5: Minimal disc bulging laterally. Mild facet joint degenerative changes.. No central spinal can al or neural foraminal stenosis. L5-S1: Moderate narrowing of the L5-S1 disc. Small endplate osteophytes and mild concentric disc bul ging. No central spinal canal or neural foraminal stenosis. The visualized SI joints and sacrum are well maintained. Soft tissues: The paraspinal soft tissues are unremarkable. IMPRESSION: Degenerative disc changes at L5-S1. Mild facet degenerative changes. No focal disc herniation. No evidence of significant spinal stenosis or neuroforaminal narrowing. DATA REPOSITORY:
== END ==
PROVIDERS: PCP Family Medicine; Visit Provider Internal Medicine Rheumatology
DX: M47.817 Spondylosis without myelopathy or radiculopathy, lumbosacral region (principal)
CPT/HCPCS: 72148

== ENCOUNTER 2022-04-21 04:20 | Outpatient (CLI) | payer MEDICAID, SELFPAY ==
[2022-04-21 09:22] LABS: TSH (W/Ref FT4) 3.31 uIU/mL (0.36-3.74)
[2022-04-21 19:11] LABS: FSH 25.5 mIU/mL (See Note)
== END 2022-04-21 04:21 | disposition home or self-care (01) ==
LOC: LBO 04:20
PROVIDERS: PCP Family Medicine; Visit Provider Obstetrics & Gynecology
DX: N91.5 Oligomenorrhea, unspecified (principal)
CPT/HCPCS: 36415; 83001; 84146; 84443

== ENCOUNTER → 2022-04-28 01:57 | Outpatient (CLI) | payer MEDICAID, SELFPAY ==
--- NOTE | 2022-04-28 10:15 | DI.US_ITS ---
Exam(s) US PELVIS TRANSVAGINAL EXAM: US PELVIS TRANSVAGINAL CLINICAL HISTORY: check anatomy TECHNIQUE: Ultrasound performed using standard protocol. COMPARISON: No exams were available for comparison FINDINGS: Ob ultrasound was performed utilizing transabdominal and transvaginal scanning. The examination was extremely limited, uterus is very poorly seen due to overlying bowel gas. Ovarie s are nonvisualized. Cervix is visualized and shows some small nabothian cysts. Limited scanning of the kidneys shows no gross hydronephrosis. IMPRESSION: Extremely limited pelvic ultrasound due to overlying bowel gas. Uterus and ovaries poorly- to nonvis ualized. Additional evaluation with pelvic MRI may be obtained if clinically indicated. DATA REPOSITORY:
== END ==
PROVIDERS: PCP Family Medicine; Visit Provider Obstetrics & Gynecology
DX: N91.5 Oligomenorrhea, unspecified (principal)
CPT/HCPCS: 76830; 76856

== ENCOUNTER 2022-09-08 00:14 | Outpatient (CLI) | payer MEDICAID, SELFPAY ==
--- NOTE | 2022-09-08 07:15 | DI.MAMMO_ITS ---
Exam(s) MAMMO SCREENING EXAM: MAMMO SCREENING CLINICAL HISTORY: screening,z12.39. TECHNIQUE: Bilateral full field digital CC and MLO mammographic images were obtained with 3D tomosyn thesis and utilizing computer aided detection (CAD). COMPARISON: Prior baseline mammogram November 2020 was reviewed. Also ultrasound November 2020 reviewed. FINDINGS: There has been no significant change in the appearance and distribution of the fibroglandular tissue. Previously described benign-appearing nodules right breast are again noted have the appearance of myriam ign intramammary lymph nodes. There are no new spiculated masses nor malignant appearing microcalcification groups. There is no significant architectural distortion nor skin thickening-retraction. IMPRESSION: Stable benign findings. No radiographic evidence of malignancy. BI-RADS Category 2 - Benign Findings Breast Density - Category B - Scattered areas of fibroglandular density Breast density Category C or D implies that the patient has dense breast tissue. Dense breast tissue can make it harder to find cancer on a mammogram. Dense breast tissue is also associated with an incr eased risk of breast cancer. This information about the result of the mammogram report was provided to the patient to raise their awareness. Use this report when you speak with the patient about their risks for breast cancer, which includes their family history. At that time, you may recommend additional screening tests (Ultrasoun d or MRI) as these tests may add significant information. A negative radiographic report should not delay biopsy if a dominant or clinically suspicious mass is present. Up to ten percent of cancers are not identified on mammography. A negative report may reinforce clinical impression. Adenosis and dense breasts may obscure an underlying neoplasm. False positive reports average 6 to 10%. Patient will receive a letter notifying them of these results.
== END 2022-09-08 00:34 ==
LOC: DI 00:15
PROVIDERS: PCP Family Medicine; Visit Provider Obstetrics & Gynecology
DX: Z12.31 Encounter for screening mammogram for malignant neoplasm of breast (principal)
CPT/HCPCS: 77063; 77067

== ENCOUNTER 2022-09-08 00:38 | Outpatient (CLI) | payer MEDICAID, SELFPAY ==
--- NOTE | 2022-09-08 | DI.RAD_ITS ---
Exam(s) XR LUMBAR SPINE COMP W FLEX/EX EXAM: XR LUMBAR SPINE COMP W FLEX/EX CLINICAL HISTORY: LOW BACK PAIN W/ BILAT RADICULOPATHY, NEUROGENIC CLAUDICATION. TECHNIQUE: 2D digital imaging was performed. COMPARISON: No exams were available for comparison FINDINGS: Seven views: The frontal view does not include L1 vertebral body nor of the superior endplate of L2. It includes the entire sacrum. L1 is included on the lateral view. There is no evidence of compression fracture in the visualized vertebral bodies. There is moderate d isc space narrowing at the lower 2 levels. There is mild degenerative anterolisthesis L4 upon L5. T here is moderate disc space narrowing at this level. IMPRESSION: Multilevel moderate disc space narrowing. Mild degenerative anterolisthesis L4 upon L5 seen on flexi on and extension and neutral views. No fractures evident on these. DATA REPOSITORY: RADIATION DOSE DELIVERED:
== END 2022-09-08 00:58 ==
LOC: DI 00:38
PROVIDERS: PCP Family Medicine; Visit Provider Internal Medicine Rheumatology
DX: M43.16 Spondylolisthesis, lumbar region (principal)
CPT/HCPCS: 72114

== ENCOUNTER 2022-12-01 20:44 | Outpatient (REF) | payer MEDICAID, SELFPAY ==
[2022-12-01 21:03] LABS: ESR 55 mm/hr (0-20)
[2022-12-01 21:04] LABS: Abs Immature Grans 0.03 10^3/uL (0.0-0.06); Absolute Basophil Count 0.03 10^3/uL (0.0-0.2); Absolute Eosinophil Count 0.06 10^3/uL (0.0-0.7); Absolute Lymphocyte Count 2.86 10^3/uL (1.2-3.4); Absolute Monocyte Count 0.68 10^3/uL (0.1-0.8); Absolute Neutrophil Count 6.37 10^3/uL (1.2-6.7); Basophils % 0.3; Eosinophils % 0.6; HCT 43.9 % (36.0-46.0); HGB 14.1 g/dL (11.2-15.7); Immature Grans % 0.3; Lymphocytes % 28.5; MCH 28.8 pg (27.0-33.0); MCHC 32.1 % (32.0-36.0); MCV 90 fL (80-95); Monocytes % 6.8; Neutrophils % 63.5; Platelet Count 381 10^3/uL (130-400); RBC 4.89 10^6/uL (3.93-5.22); RDW 14.3 % (11.7-14.6); WBC 10.03 10^3/uL (4.4-10.8)
[2022-12-01 21:28] LABS: ALT 47 U/L (14-59); AST 37 U/L (15-37); Albumin 3.7 g/dL (3.4-5.0); Alkaline Phosphatase 95 U/L (46-116); Anion Gap 2.5 mmol/L (3-11); BUN 12 mg/dL (7-18); Bilirubin, Total 0.7 mg/dL (0.2-1.0); CO2 32.5 mmol/L (21.0-32.0); CREATININE 0.8 mg/dL (0.55-1.02); Calcium 9.5 mg/dL (8.5-10.1); Chloride 102 mmol/L (98-107); Creatine Kinase 201 U/L (26-192); Estimated GFR 91.97 (mL/min/1.73m2); Glucose 83 mg/dL (74-106); Potassium 4.6 mmol/L (3.5-5.1); Sodium 137 mmol/L (136-145); TSH (W/Ref FT4) 1.42 uIU/mL (0.36-3.74)
[2022-12-01 21:34] LABS: Vitamin D 25 Total 20.2 ng/mL (30-100)
[2022-12-01 21:46] LABS: Hemoglobin A1C 5.6 % (<5.7)
== END 2022-12-01 20:45 | disposition home or self-care (01) ==
LOC: NCHCN 20:44
PROVIDERS: PCP Family Medicine; Visit Provider Family Medicine
DX: G47.30 Sleep apnea, unspecified (principal); E04.1 Nontoxic single thyroid nodule
CPT/HCPCS: 80053; 82306; 82550; 85652; 83036; 84443; 85025

== ENCOUNTER 2023-01-16 16:34 | Emergency (ER) | payer MEDICAID, SELFPAY ==
[2023-01-16 16:38] VITALS: BP 147/77; PULSE 89; RESP 18; TEMP 36.2; O2SAT 97
--- NOTE | 2023-01-16 17:45 | DI.RAD_ITS ---
Exam(s) XR KNEE LT 4V AP,LAT,JERROD,PAT EXAM: XR KNEE LT 4V AP,LAT,JERROD,PAT CLINICAL HISTORY: pain with ambulation, no known trauma. TECHNIQUE: 2D digital imaging was performed. Three views. COMPARISON: No exams were available for comparison FINDINGS: BONES: There is a bipartite patella. There is so small adjacent bony fragments inferiorly. Appear o ld. No acute fracture is present. No bony destructive lesion is seen. JOINTS: There is severe narrowing of the lateral patellofemoral joint and lateral patellar subluxatio n. A small joint effusion is seen. SOFT TISSUE: Anterior swelling. 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 DATA REPOSITORY: RADIATION DOSE DELIVERED:
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
--- NOTE | 2023-01-16 19:01 | DI.VRAD_ITS ---
PROCEDURE INFORMATION: Exam: XR Left Knee Exam date and time: 01/16/2023 6:15 PM Age: 47 years old Clinical indication: Knee; Left; Patient HX: Pain with ambulation, no known trauma TECHNIQUE: Imaging protocol: Radiologic exam of the left knee. Views: 4 or more views. COMPARISON: CR XR LUMBAR SPINE COMP W FLEX/EX 09/08/2022 12:28 PM FINDINGS: Bones/joints: There is a bipartite patella. The patella is subluxed laterally. There is a suprapatellar effusion. There are degenerative changes with osteophyte formation at the level of the tibial plateau both medially and laterally. There is a well corticated bony fragment at the inferior aspect of the patella. This could represent an old trauma. Clinical correlation is recommended. Soft tissues: There is soft tissue swelling at the level of the knee. IMPRESSION: Bipartite patella. Degenerative changes as above. Suspect old injury to patella. Further evaluation could be obtained with CT scan if clinically warranted. Suprapatellar effusion. Dictated and Authenticated by: Torres Block MD. Ordering:GAVIOTA Velasquez MD
[2023-01-16] MEDS: Ibuprofen 600 MG TAB PO (19:57)
[2023-01-16] MEDS: Acetaminophen 500 MG TAB 1000 MG PO (19:57)
== END 2023-01-16 20:44 | disposition home or self-care (01) ==
PROVIDERS: Emergency Provider Physician Assistant; PCP Family Medicine
DX: M25.561 Pain in right knee (principal); M25.461 Effusion, right knee; Q74.1 Congenital malformation of knee
CPT/HCPCS: 99283; 73564

== ENCOUNTER 2024-04-01 15:52 | Emergency (ER) | payer MEDICAID, SELFPAY ==
[2024-04-01 15:56] VITALS: BP 130/86; PULSE 84; TEMP 36.7; O2SAT 96
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
[2024-04-01] MEDS: ACETAMINOPHEN 1,000 MG/100 ML BTL 400 MG IVPB (16:40)
[2024-04-01 17:00] VITALS: BP 147/89; PULSE 78; RESP 18; O2SAT 98
[2024-04-01 17:00] LABS: Abs Immature Grans 0.03 10^3/uL (0.0-0.06); Absolute Basophil Count 0.03 10^3/uL (0.0-0.2); Absolute Eosinophil Count 0.07 10^3/uL (0.0-0.7); Absolute Lymphocyte Count 2.44 10^3/uL (1.2-3.4); Absolute Monocyte Count 0.71 10^3/uL (0.1-0.8); Absolute Neutrophil Count 6.76 10^3/uL (1.2-6.7); Basophils % 0.3 %; Eosinophils % 0.7 %; HCT 45.5 % (36.0-46.0); HGB 14.5 g/dL (11.2-15.7); Immature Grans % 0.3 %; Lymphocytes % 24.3 %; MCH 28.4 pg (27.0-33.0); MCHC 31.9 % (32.0-36.0); MCV 89 fL (80-95); MPV 8.9 fL (8.0-11.0); Monocytes % 7.1 %; Neutrophils % 67.3 %; Platelet Count 318 10^3/uL (130-400); RBC 5.11 10^6/uL (3.93-5.22); RDW 13.4 % (11.7-14.6); RDW-SD 44.4 fL; WBC 10.04 10^3/uL (4.4-10.8)
[2024-04-01 17:20] LABS: ALT 35 U/L (14-59); AST 34 U/L (15-37); Albumin 3.5 g/dL (3.4-5.0); Alkaline Phosphatase 96 U/L (46-116); Anion Gap 5.3 mmol/L (3-11); BUN 13 mg/dL (7-18); Bilirubin, Total 0.61 mg/dL (0.2-1.0); CO2 29.7 mmol/L (21.0-32.0); CREATININE 0.9 mg/dL (0.55-1.02); Calcium 10.1 mg/dL (8.5-10.1); Chloride 101 mmol/L (98-107); Estimated GFR 79.35 (mL/min/1.73m2); Glucose 97 mg/dL (74-106); Lipase 59 U/L (16-77); Potassium 3.9 mmol/L (3.5-5.1); Sodium 136 mmol/L (136-145); Total Protein 8.6 g/dL (6.4-8.2)
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
[2024-04-01] MEDS: Normal Saline - Diluent 50 ML VIAL IJ (17:48)
[2024-04-01] MEDS: Omnipaque 350 MG/ML 100 ML BTL IJ (17:49)
[2024-04-01 17:55] VITALS: BP 168/85; PULSE 74; RESP 20; O2SAT 94
[2024-04-01 17:56] VITALS: RESP 20; O2SAT 94
--- OUTSIDE RECORDS SUMMARY | 2024-04-01 18:17 | XMS_ITS | Encounter Summary ---
Author Organization [facility] Address [address] [place] [address] Care Team Providers Care Musical Performer Name Role Phone Unknown, Provider Primary Care Provider [phone] Encounter Details Date Type Department Care Team (Late st Contact Info) Description 11/13/2020 Lab Requisition [facility] - [address] [address] Outr Resulting Lab, Provider Social History Tobacco Use Types Packs/Day Years Used Date Smoking Tobacco: Never Assessed Interpersonal Safety Answer Date Record ed Physically Hurt Never 02/23/2020 Verbally Threaten Not on file 02/23/2020 Sex and Gender Information Value Date Recorded Sex Assigned at Not on file Gender Identity Not on file Sexual Orientation Not on file documented as of this encounter Plan of Treatment Not on file documented as of this encounter Procedures Procedure Name Priority Date/Time Associated Diagnosis Comments LYME AB Routine 11/13/2020 11:10 EDT documented in this encounter Results * LYME AB (11/13/2020 11:10 EDT) Lyme Ab Negative Negative 11/16/2020 9:56 EDT [facility] Comment:New 3rd generation a ssay in use 01/01/2020 Blood VENOUS BLOOD / Unknown 11/13/2020 11:10 EDT 11/13/2020 20:39 EDT Provider Outr Resulting Lab IMMUNOLOGY A ND SEROLOGY ORDERABLES [facility] [address] [place] [address] documented in this encounter Visit Diagnoses Not on filedocumented in this encounter Care Teams Musical Performer Relationship Specialty Start Date End Date Unknown, Provider, PCP - General 04/17/13 documented as of this encounter
--- OUTSIDE RECORDS SUMMARY | 2024-04-01 18:17 | XMS_ITS | Referral Summary ---
Author Organization [facility] Address [address] [place] [address] Care Team Providers Care Human Resources Psychologist Name Role Phone Unknown, Provider Primary Care Provider [phone] Allergies No known active allergies Medications Medication Sig Dispensed Refills Start Date End Date Status busPIRone (BUSPAR) 10 mg tablet Take 10 mg by mouth 3 times daily. Active amitriptyline (ELAVIL) 25 mg tablet Take 25 mg by mouth at bedtime. 1/2 to 1 tab Q HS Active escitalopram oxalate (LEXAPRO) 10 mg tablet Take 10 mg by mouth daily. Active acetaminophen (TYLENOL 8 HOUR) 650 mg CR tablet Take 1,300 mg by mouth 2 times daily. Active Active Problems Problem Noted Date Diagnosed Date Myalgia 03/11/2021 Anxiety 03/11/2021 Depression 03/11/2021 Obesity 03/11/2021 Social History Tobacco Use Types Packs/Day Years Used Date Smoking Tobacco: Never Smokeless Tobacco: Never Interpersonal Safety Answer Date Record ed Physically Hurt Never 12/27/2020 Verbally Threaten Not on file 12/27/2020 Sex and Gender Information Value Date Recorded Sex Assigned at Not on file Gender Identity Not on file Sexual Orientation Not on file Plan of Treatment Not on file Randy, Bernadette Personal/Family Self [address] [facility] [place] [address] Randy, Bernadette Personal/Family Self [address] [facility] [place] [address] Bernadette Padilla Personal/Family Self [address] [place] [address] Care Teams Human Resources Psychologist Relationship Specialty Start Date End Date Unknown, Provider, PCP - General 04/17/13
--- OUTSIDE RECORDS SUMMARY | 2024-04-01 18:17 | XMS_ITS | Encounter Summary ---
Author Organization [facility] Address [address] [place] [address] Care Team Providers Care Dust Collector Treater Name Role Phone Unknown, Provider Primary Care Provider Encounter Details Date Type Department Care Team (Late st Contact Info) Description 07/30/2020 Lab Requisition [facility] Pathology & Laboratory Medicine - [address] [address] Outr Resulting Lab, Provider Social History Tobacco [...] Procedure Name Priority Date/Time Associated Diagnosis Comments ZZCOVID-19 TEST [facility] PCR Today 07/29/2020 19:12 EST COVID-19 TESTING Routine 07/29/2020 19:1 2 EST documented in this encounter Results * COVID-19 TEST [facility] PCR (07/29/2020 19:12 EST) Swab ENTIRE NASOPHARYNX / Unknown 07/29/2020 19:12 EST 07/30/2020 15:41 EST Provider Outr Resulting Lab MICROBIOLOGY - GENERAL ORDERABLES [facility] [address] [place] [address] * COVID-19 TESTING (07/29/2020 19:12 EST) COVID-19 rt-PCR Result Negative Negative 07/31/2020 15:51 EST [facility] Comment: Negative results do not preclude 2019-nCoV infection and should not be used as the sole basis for treatment or other patient management decisions. Negative results must be combined with clinical observations, patient history, and epidemiological information. This test was developed and its performance characteristics determined by [facility]. It has not been cleared or approved by the US Food and Drug Administration. FDA does not require this test to go through premarket FDA review. This test is used for clinical purposes. It should not be regarded as investigational or for research. This laboratory is certified under the Clinical Laboratory Improvement Amendments (CLIA) as qualified to perform high complexity clinical laboratory testing. This test is based on the [facility] COVID-19 Emergency Use Authorization (EUA) assay, with minor modification as defined by the FDA Performed on the [employer] Flex. Performing Lab [facility] Lab 07/31/2020 15:51 EST [facility] Swab 07/29/2020 19:1 2 EST 07/30/2020 15:41 EST Provider Outr Resulting Lab MICROBIOLOGY - GENERAL ORDERABLES [facility] [address] [place] [address] documented in this encounter Visit Diagnoses Not on filedocumented in this encounter Care Teams Dust Collector Treater Relationship Specialty Start Date End Date Unknown, Provider, PCP - General 04/17/13 documented as of this encounter
--- OUTSIDE RECORDS SUMMARY | 2024-04-01 18:17 | XMS_ITS | Encounter Summary ---
Author Organization [facility] Address [address] [place] [address] Care Team Providers Care Airbrush Artist Technical Name Role Phone Unavailable Primary Care Provider Unavailabl e Encounter Details Date Type Department Care Team (Late st Contact Info) Description 04/25/[address] [facility] conversion [address] [place] [address] Ziggy Fisher MD [address] [place] [address] Social History Tobacco Use Types Packs/Day Years Used Date Smoking Tobacco: Never Assessed Sex and Gender Information Value Date Recorded Sex Assigned at Not on file Gender Identity Not on file Sexual Orientation Not on file documented as of this encounter Plan of Treatment Not on file documented as of this encounter Procedures Procedure Name Priority Date/Time Associated Diagnosis Comments SURGICAL PATHOLOGY Routine 04/25/2007 0:00 EDT documented in this encounter Results * SURGICAL PATHOLOGY (04/25/2007 0:00 EDT) Pathology Report: SURGICAL PATHOLOGY REPORT Reports generated via electronic interface contain original data; however they are lacking the format of the original report. Caution should be taken when reading/interpreti ng unformatted reports. Name: ? HARDIK PADILLA ? Accession #: ? [id number] ? : ? 1975 (Age: 31) ??F ? Collect Date: ? 04/25/2007 ? Location: ? [facility] ? Receive Date: ? 04/25/2007 ? Provider: ZIGGY FISHER MD Copy to: YISEL VALENTINE SUPERVISOR OF INSTRUCTION ? Final Pathologic Diagnosis: A. ?Fallopian tube, left, salpingectomy: 1. ?Full cross section demonstrated. B. ?Fallopian tube, right, salpingectomy: 1. ?Full cross section demonstrated. Document reviewed and electronically signed by: Armani Gamble MD Report ??Date: 04/27/2007 14:18 By the signature above, the attending physician certifies that he/she has personally conducted a gross and/or microscopic examination of the described specimens and rendered or confirmed the above diagnosis. Specimen(s) Received: A. ?Left fallopian tube (#2) B. ? Right fallopian tube (#2) Clinical History: ? Desires permanent sterilization Gross Description: ? Received in formalin labelled Padilla and left fallopian tube is a 0.9 cm in length by 0.7 cm in diameter tubular portion of soft tissue with a smooth and glistening serosa. The cut surfaces reveal an unremarkable pinpoint lumen. The specimen is inked for orientation purposes only. Two cross sections are submitted as (A). Received in formalin labelled Padilla and right fallopian tube is a 1.8 cm in length by 0.7 cm in diameter tubular segment of soft tissue with a smooth and glistening serosa. The cut surfaces reveal an unremarkable pinpoint lumen consistent with fallopian tube. The specimen is inked for orientation purposes only. Two cross sections are submitted as (B). (Chencho Dunham)/jb End of Report [facility] ZAMBRANO 04/25/2007 04/25/2007 0:2 2 EDT Ziggy Fisher MD PATHOLOGY ORDERABLES Performing Organization Address City/State/[facility] Co de Phone Number [facility] [address] [place] [address] documented in this encounter Visit Diagnoses Not on filedocumented in this encounter
--- OUTSIDE RECORDS SUMMARY | 2024-04-01 18:17 | XMS_ITS | Encounter Summary ---
Author Organization [facility] Address [address] [place] [address] Care Team Providers Care Cylinder Sander Operator Name Role Phone Unknown, Provider Primary Care Provider [phone] Encounter Details Date Type Department Care Team (Late st Contact Info) Description 06/25/2020 Lab Requisition [facility] Pathology & Laboratory Medicine - [address] [address] Outr Resulting Lab, Provider Social History Tobacco [...] Procedure Name Priority Date/Time Associated Diagnosis Comments DO NOT ORDER STANDALONE - [facility] COVID TEST Today 06/24/2020 13:00 EST COVID-19 TESTING Routine 06/24/2020 13:0 0 EST documented in this encounter Results * DO NOT ORDER STANDALONE - [facility] COVID TEST (06/24/2020 13:00 EST) COVID-19 rt-PCR Result NEGATIVE Negative 06/27/2020 16:29 EST [facility] Comment: 2019-novel Coronavirus (2019-nCoV) not detected by the qRT-PCR assay. Consider testing for other respiratory viruses or re-collecting for 2019-nCoV testing. Note: Optimum timing for peak viral levels during infections caused by 2019-nCoV have not been determined. Collection of multiple specimens from the same patient may be necessary to detect the virus. Limitations Positive results are indicative of active infection with SARS-CoV-2 but do not rule out bacterial infection or co-infection with other viruses. The agent detected may not be the definite cause of disease. In addition, detection of viral RNA may not indicate the presence of infectious virus or that SARS-CoV-2 is the causative agent for clinical symptoms. Negative results do not preclude SARS-CoV-2 infection and should not be used as the sole basis for patient management decisions. Negative results must be combined with clinical observations, patient history, and epidemiological information. False negative results may also occur if amplification inhibitors are present in the specimen or if inadequate numbers of organisms are present in the specimen. Optimum specimen types and timing for peak viral levels during infections caused by SARS-CoV-2 have not been fully determined. Collection of multiple specimens (types and time points) from the same patient may be necessary to detect the virus. The test was validated for use with upper respiratory specimens obtained via nasopharyngeal or oropharyngeal swabs in VTM, UTM, M4, M5, M6, saline, and MTM media. The performance of this test has not been established for other specimens. Specimens collected using other FDA recommended Specimen Collection Materials listed in the FDA COVID-19 Diagnostic Technologies communication (October 17, 2019) are processed with the caveat that they were not all validated for use with this test and the result must be interpreted in this context. Furthermore, a false negative results may occur if a specimen is improperly collected, transported or handled. If the virus mutates in the RT-PCR target region, SARS-CoV-2 may not be detected or may be detected less predictably. Inhibitors or other types of interference may produce a false negative result. An interference study evaluating the effect of common cold medications was not performed. This test is not FDA-cleared but its performance characteristics were established by our CLIA-certified, CAP-accredited, high complexity laboratory in accordance with CLIA regulations, [employer] [place] [employer] (CAP) guidelines (Oct 10, 2019), and FDA guidance (Sep 21, 2019). This test is only for use under the Food and Drug Administration's Emergency Use Authorization. Swab ENTIRE NASOPHARYNX / Unknown 06/24/2020 13:00 EST 06/25/2020 22:59 EST Provider Outr Resulting Lab MICROBIOLOGY - GENERAL ORDERABLES [facility] [place], [place] * COVID-19 TESTING (06/24/2020 13:00 EST) COVID-19 rt-PCR Result NEGATIVE Negative 06/27/2020 16:29 EST [facility] Comment: 2019-novel Coronavirus (2019-nCoV) not detected by the qRT-PCR assay. Consider testing for other respiratory viruses or re-collecting for 2019-nCoV testing. Note: Optimum timing for peak viral levels during infections caused by 2019-nCoV have not been determined. Collection of multiple specimens from the same patient may be necessary to detect the virus. Limitations Positive results are indicative of active infection with SARS-CoV-2 but do not rule out bacterial infection or co-infection with other viruses. The agent detected may not be the definite cause of disease. In addition, detection of viral RNA may not indicate the presence of infectious virus or that SARS-CoV-2 is the causative agent for clinical symptoms. Negative results do not preclude SARS-CoV-2 infection and should not be used as the sole basis for patient management decisions. Negative results must be combined with clinical observations, patient history, and epidemiological information. False negative results may also occur if amplification inhibitors are present in the specimen or if inadequate numbers of organisms are present in the specimen. Optimum specimen types and timing for peak viral levels during infections caused by SARS-CoV-2 have not been fully determined. Collection of multiple specimens (types and time points) from the same patient may be necessary to detect the virus. The test was validated for use with upper respiratory specimens obtained via nasopharyngeal or oropharyngeal swabs in VTM, UTM, M4, M5, M6, saline, and MTM media. The performance of this test has not been established for other specimens. Specimens collected using other FDA recommended Specimen Collection Materials listed in the FDA COVID-19 Diagnostic Technologies communication (October 17, 2019) are processed with the caveat that they were not all validated for use with this test and the result must be interpreted in this context. Furthermore, a false negative results may occur if a specimen is improperly collected, transported or handled. If the virus mutates in the RT-PCR target region, SARS-CoV-2 may not be detected or may be detected less predictably. Inhibitors or other types of interference may produce a false negative result. An interference study evaluating the effect of common cold medications was not performed. This test is not FDA-cleared but its performance characteristics were established by our CLIA-certified, CAP-accredited, high complexity laboratory in accordance with CLIA regulations, [employer] [place] [employer] (CAP) guidelines (Oct 10, 2019), and FDA guidance (Sep 21, 2019). This test is only for use under the Food and Drug Administration's Emergency Use Authorization. Performing Lab [facility] 06/27/2020 16:29 EST [facility] Swab 06/24/2020 13:0 0 EST 06/25/2020 22:59 EST Provider Outr Resulting Lab MICROBIOLOGY - GENERAL ORDERABLES [facility] [address] [place] [address] [facility] [place] documented in this encounter Visit Diagnoses Not on filedocumented in this encounter Care Teams Cylinder Sander Operator Relationship Specialty Start Date End Date Unknown, Provider, PCP - General 04/17/13 documented as of this encounter
--- OUTSIDE RECORDS SUMMARY | 2024-04-01 18:17 | XMS_ITS | Encounter Summary ---
Author Organization [facility] Address [address] [place] [address] Care Team Providers Care Network Strategist Name Role Phone Unknown, Provider Primary Care Provider [phone] Encounter Details Date Type Department Care Team (Late st Contact Info) Description 06/03/2021 Lab Requisition [facility] Pathology & Laboratory Medicine - [address] [address] Outr Resulting Lab, Provider Social History Tobacco [...] Procedure Name Priority Date/Time Associated Diagnosis Comments SM (LYNN) ANTIBODY, IGG Routine 06/02/2021 12:10 EST DOUBLE STRANDED DNA ANTIBODY, IGG Routine 06/02/2021 12:10 EST ANTI NUCLEAR AB (JANETH), IFA Routine 06/02/2021 12:10 EST documented in this encounter Results * ANTI DNA (DOUBLE STRANDED) (06/02/2021 12:10 EST) Anti-DNA (Double Stranded) <12.3 <30.0 IU/mL 06/08/2021 12:31 EST [facility] Comment: ? Negative: ??<30.0 IU/mL ? Borderline Positive: ??30.0 - 75.0 IU/mL ? Positive: ??>75.0 IU/mL Results were obtained with the AFAR QUANTA Lite dsDNA SC BOB assay on the [employer]. Blood VENOUS BLOOD / Unknown 06/02/2021 12:10 EST 06/03/2021 17:25 EST Provider Outr Resulting Lab IMMUNOLOGY A ND SEROLOGY ORDERABLES Performing Organization Address [facility] de Phone Number [facility] [address] [place] [address] * SM (LYNN) ANTIBODY (06/02/2021 12:10 EST) SM (Lynn) Antibody 3.9 <20.0 Units 06/08/2021 13:21 EST [facility] Comment: ? Negative: <20.0 Units ? Weak Positive: 20.0 - 39.9 Units ? Moderate Positive: 40.0 - 80.0 Units ? Strong Positive: >80.0 Units Results were obtained with the [employer] QUANTA Lite Sm BOB. ??Sm values obtained with different manufacturers' assay methods may not be used interchangeably. ??The magnitude of the reported IgG levels cannot be correlated to an endpoint titer. Blood VENOUS BLOOD / Unknown 06/02/2021 12:10 EST 06/03/2021 17:25 EST Provider Outr Resulting Lab IMMUNOLOGY A ND SEROLOGY ORDERABLES Performing Organization Address [facility] de Phone Number [facility] [address] [place] [address] * (ABNORMAL) ANTI NUCLEAR AB (JANETH), IFA (06/02/2021 12:10 EST) JANETH Interpretation Positive(A) Negative 06/04/2021 14:40 EST [facility] JANETH Titer and Pattern 1 1:80 Speckled 06/04/2021 14:40 EST [facility] Blood VENOUS BLOOD / Unknown 06/02/2021 12:10 EST 06/03/2021 17:25 EST Narrative [facility] - 06/04/2021 14:40 EST Results were obtained with the AFAR NOVA Lite HEp-2 JANETH Kit by indirect immunofluorescence. Provider Outr Resulting Lab IMMUNOLOGY A ND SEROLOGY ORDERABLES [facility] [address] [place] [address] documented in this encounter Visit Diagnoses Not on filedocumented in this encounter Care Teams Network Strategist Relationship Specialty Start Date End Date Unknown, Provider, PCP - General 04/17/13 documented as of this encounter
--- OUTSIDE RECORDS SUMMARY | 2024-04-01 18:17 | XMS_ITS | Encounter Summary ---
Author Organization [facility] Address [address] [place] [address] Care Team Providers Care Pharmacy General Manager Name Role Phone Unknown, Provider Primary Care Provider Encounter Details Date Type Department Care Team (Late st Contact Info) Description 01/27/2022 Lab Requisition [facility] Pathology & Laboratory Medicine - [address] [address] Outr Resulting Lab, Provider Social History Tobacco [...] Procedure Name Priority Date/Time Associated Diagnosis Comments THYROID ANTIBODIES Routine 01/27/2022 14 :27 EDT documented in this encounter Results * THYROID ANTIBODIES (01/27/2022 14:27 EDT) Anti-Thyroglobulin <15 <=60 U/mL 2021 22:24 EDT [facility] Thyroperoxidase Ab 37 <=60 U/mL 2021 22:24 EDT [facility] Blood VENOUS BLOOD / Unknown 01/27/2022 14:27 EDT 01/27/2022 21:13 EDT Provider Outr Resulting Lab CHEMISTRY & BLOOD GAS ORDERABLES [facility] [address] [place] [address] documented in this encounter Visit Diagnoses Not on filedocumented in this encounter Care Teams Pharmacy General Manager Relationship Specialty Start Date End Date Unknown, Provider, PCP - General 04/17/13 documented as of this encounter
--- OUTSIDE RECORDS SUMMARY | 2024-04-01 18:17 | XMS_ITS | Encounter Summary ---
Author Organization [facility] Address [address] [place] [address] Care Team Providers Care Chairman Ceo Name Role Phone Unavailable Primary Care Provider Unavailabl e Encounter Details Date Type Department Care Team (Late st Contact Info) Description 12/27/2006 Results Only [facility] [address] [place] [address] Rachael Kang CNM [address] [place], [place] [address] Social History Tobacco Use Types Packs/Day Years Used Date Smoking Tobacco: Never Assessed Sex and Gender Information Value Date Recorded Sex Assigned at Not on file Gender Identity Not on file Sexual Orientation Not on file documented as of this encounter Plan of Treatment Not on file documented as of this encounter Procedures Procedure Name Priority Date/Time Associated Diagnosis Comments CYTOPATHOLOGY Routine 12/27/2006 0:00 EDT documented in this encounter Results * CYTOPATHOLOGY (12/27/2006 0:00 EDT) Pathology Report: CYTOPATHOLOGY REPORT Reports generated via electronic interface contain original data; however they are lacking the format of the original report. Caution should be taken when reading/interpreti ng unformatted reports. Name: ? HARDIK PADILLA ? Accession #: ? [id number] : ? 1975 (Age: 31) ??F ?Collect Date: ? 12/27/2006 Location: ? [facility] ? Receive Date: ? 12/28/2006 Provider: ?RACHAEL KANG CNM Copy to: ? Specimen/Source: ?ThinPrep Pap Test, Cervix/Endocervix, processed on [employer] ThinPrep Imaging System, with manual evaluation Last Menstrual Period: ? 06/25/06 Previous Gynecologic Pathology: ? ASC-US: Cannot R/O ELVI 10/22 HPV: 09/22 Pos LSIL: 11/25 Yes: ECC benign 01/25 Treatment History: ? LEEP: 01/21 Colposcopy: 01/25 no dysplasia Other: ? Additional clinical information: 09/22, 10/24, 11/24 paps neg HPVA - HPV testing requested if ASC-US on the current ThinPrep Pap test. ? SPECIMEN ADEQUACY ? Satisfactory for Evaluation - transformation zone component present GENERAL CATEGORIZATION ? Negative for Intraepithelial Lesion or Malignancy ? Document reviewed and electronically signed by: ? MODESTO Good(ASCP) ? Report Date: ??01/02/2007 09:43 End of Report [facility] ZAMBRANO 12/27/2006 12/28/2006 Rachael Kang CNM PATHOLOGY ORDERABLES [facility] [address] [place] [address] documented in this encounter Visit Diagnoses Not on filedocumented in this encounter
--- OUTSIDE RECORDS SUMMARY | 2024-04-01 18:17 | XMS_ITS | Encounter Summary ---
Author Organization [facility] Address [address] [place] [address] Care Team Providers Care Supervisory Clerk Name Role Phone Unknown, Provider Primary Care Provider [phone] Encounter Details Date Type Department Care Team (Late st Contact Info) Description 03/11/2021 Abstract [facility] Rheumatology [address] [place] [address] Laurie Wells RN Social History Tobacco Use Types Packs/Day Years [...] on file documented as of this encounter Visit Diagnoses Not on filedocumented in this encounter Historical Medications * This list may reflect changes made after this encounter. Medication Sig Dispensed Refills Start Date End Date acetaminophen (TYLENOL 8 HOUR) 650 mg CR tablet Take 1,300 mg by mouth 2 times daily. escitalopram oxalate (LEXAPRO) 10 mg tablet Take 10 mg by mouth daily. amitriptyline (ELAVIL) 25 mg tablet Take 25 mg by mouth at bedtime. 1/2 to 1 tab Q HS busPIRone (BUSPAR) 10 mg tablet Take 10 mg by mouth 3 times daily. added in this encounter Care Teams Supervisory Clerk Relationship Specialty Start Date End Date Unknown, Provider, PCP - General 04/17/13 documented as of this encounter
--- OUTSIDE RECORDS SUMMARY | 2024-04-01 18:17 | XMS_ITS | Encounter Summary ---
Author Organization [facility] Address [address] [place] [address] Care Team Providers Care High School Foreign Language Teacher Name Role Phone Unknown, Provider Primary Care Provider [phone] Encounter Details Date Type Department Care Team (Late st Contact Info) Description 11/09/2018 Results Only [facility] [phone] Joanna Minor, SAMPLE PASTER [address],[facility] [address] [place] [address] Social History Tobacco Use Types Packs/Day Years Used Date Smoking Tobacco: Never Assessed Sex and Gender Information Value Date Recorded Sex Assigned at Not on file Gender Identity Not on file Sexual Orientation Not on file documented as of this encounter Plan of Treatment Not on file documented as of this encounter Visit Diagnoses Not on filedocumented in this encounter Care Teams High School Foreign Language Teacher Relationship Specialty Start Date End Date Unknown, Provider, PCP - General 04/17/13 documented as of this encounter
--- OUTSIDE RECORDS SUMMARY | 2024-04-01 18:17 | XMS_ITS | Encounter Summary ---
Author Organization [facility] Address [address] [place] [address] Care Team Providers Care Livestock Handler Name Role Phone Unknown, Provider Primary Care Provider [phone] Reason for Visit * (Routine/Next Available) - Receiving Office to Obtain Authorization Specialty Diagnoses / Procedures Referred By Jaciel maloney Referred To Contact Procedures XR OUTSIDE IMAGES LUMBAR SPINE Imaging, External Referral ID Status Reason Start Date Expiration Date Visits Requested Visits Authorized [id number] Receiving Office to Obtain Authorization 09/20/2022 1 1 Encounter Details Date Type Department Care Team (Latest Contact Info) Description 09/08/2022 - 09/08/2022 23:59 EST Hospital Encounter [facility] Secondary Reads [place] Discharge Disposition: Home or Self Care Social History Tobacco Use Types Packs/Day Years Used Date Smoking Tobacco: Never Smokeless Tobacco: Never Interpersonal Safety Answer Date Record ed Physically Hurt Never 12/27/2020 Verbally Threaten Not on file 12/27/2020 Sex and Gender Information Value Date Recorded Sex Assigned at Not on file Gender Identity Not on file Sexual Orientation Not on file documented as of this encounter Medications at Time of Discharge Medication Sig Dispensed Refills Start Date End Date acetaminophen (TYLENOL 8 HOUR) 650 mg CR tablet Take 1,300 mg by mouth 2 times daily. amitriptyline (ELAVIL) 25 mg tablet Take 25 mg by mouth at bedtime. 1/2 to 1 tab Q HS busPIRone (BUSPAR) 10 mg tablet Take 10 mg by mouth 3 times daily. escitalopram oxalate (LEXAPRO) 10 mg tablet Take 10 mg by mouth daily. documented as of this encounter Discharge Disposition Disposition Code Departure Means Destination Home or Self Care documented in this encounter Plan of Treatment Not on file documented as of this encounter Procedures Procedure Name Priority Date/Time Associated Diagnosis Comments XR OUTSIDE IMAGES LUMBAR SPINE Routine 09/08/2022 22:39 EST documented in this encounter Results * XR OUTSIDE IMAGES LUMBAR SPINE (09/08/2022 22:39 EST) Narrative 09/20/2022 22:39 EST This is a non-reportable exam. External Imaging IMG OTHER IMAGING OR DERABLES documented in this encounter Visit Diagnoses Not on filedocumented in this encounter Care Teams Livestock Handler Relationship Specialty Start Date End Date Unknown, Provider, PCP - General 04/17/13 documented as of this encounter
--- OUTSIDE RECORDS SUMMARY | 2024-04-01 18:17 | XMS_ITS | Clinical Summary ---
Author Organization [facility] Address [address] [place] [address] Care Team Providers Care Bag Hanger Name Role Phone Unknown, Provider MD Primary Care Provider Allergies No known active allergies Medications Medication [...] 03/11/2021 Anxiety 03/11/2021 Depression 03/11/2021 Obesity 03/11/2021 Medical History Medical History Date Comments Migraines Low back pain without sciatica Thyroid nodule Dyspepsia Family History Medical History Relation Comments No Known Father Cancer Mother Relation Status Comments Father Mother Social History Tobacco Use Types Packs/Day Years Used Date Smoking Tobacco: Never Smokeless Tobacco: Never Interpersonal Safety Answer Date Record ed Physically Hurt Never 12/27/2020 Verbally Threaten Not on file 12/27/2020 Sex and Gender Information Value Date Recorded Sex Assigned at Not on file Gender Identity Not on file Sexual Orientation Not on file Obstetrics History Plan of Treatment Health Maintenance Due Date Last Done Comments Hepatitis C Screen 1975 Hepatitis B Vaccine (1 of 3 - 19+ 3-dose series) 10/04 COVID-19 Vaccine (2022-24 season) 2023 Care Teams Bag Hanger Relationship Specialty Start Date End Date Unknown, Provider, PCP - General 04/17/13
--- OUTSIDE RECORDS SUMMARY | 2024-04-01 18:17 | XMS_ITS | Encounter Summary ---
Author Organization [facility] Address [address] [place] [address] Care Team Providers Care Excelsior Cutter Name Role Phone Unknown, Provider Primary Care Provider Encounter Details Date Type Department Care Team (Late st Contact Info) Description 04/21/2022 Lab Requisition [facility] Pathology & Laboratory Medicine - [address] [address] Outr Resulting Lab, Provider Social History Tobacco [...] Procedure Name Priority Date/Time Associated Diagnosis Comments PROLACTIN Routine 04/21/2022 8:30 EDT FSH Routine 04/21/2022 8:30 EDT documented in this encounter Results * FSH (04/21/2022 8:30 EDT) FSH 25.5 See Note mIU/mL 04/21/2022 19:07 EDT [facility] Blood VENOUS BLOOD / Unknown 04/21/2022 8:30 EDT 04/21/2022 18:17 EDT Narrative [facility] - 04/21/2022 19:07 EDT NOTE: Female FSH Reference Ranges (Menstruating): PHYSIOLOGICAL STATUS ? REFERENCE RANGE ? Follicular (-12 to -4 days): ?? 2.5 - 10.2 mIU/mL Midcycle (-3 to +2 days): ?3.4 - 33.4 mIU/mL Luteal (+4 to +12 days): ? 1.5 - 9.1 mIU/mL Postmenopausal: ?23.0 - 116.3 mIU/mL Reference Ranges for pediatric non-menstruating female patients have not been established. Provider Outr Resulting Lab CHEMISTRY & BLOOD GAS ORDERABLES [facility] [address] [place] [address] * PROLACTIN (04/21/2022 8:30 EDT) Prolactin 16.0 See Note ng/mL 04/21/2022 19:05 EDT [facility] Comment: NOTE: Female Reference Ranges: PHYSIOLOGICAL STATUS ?REFERENCE RANGE ? Postmenopausal ?1.8 - 20.3 ng/mL ?9.7 - 208.5 ng/mL Non- ?2.8 - 29.2 ng/mL Blood VENOUS BLOOD / Unknown 04/21/2022 8:30 EDT 04/21/2022 18:17 EDT Provider Outr Resulting Lab CHEMISTRY & BLOOD GAS ORDERABLES [facility] [address] [place] [address] documented in this encounter Visit Diagnoses Not on filedocumented in this encounter Care Teams Excelsior Cutter Relationship Specialty Start Date End Date Unknown, Provider, PCP - General 04/17/13 documented as of this encounter
--- OUTSIDE RECORDS SUMMARY | 2024-04-01 18:17 | XMS_ITS | Encounter Summary ---
Author Organization [facility] Address [address] [place] [address] Care Team Providers Care Public Works Inspector Name Role Phone Unknown, Provider Primary Care Provider [phone] Encounter Details Date Type Department Care Team (Latest Contact Info) Description 11/30/2020 Lab Requisition [facility] Pathology & Laboratory Medicine - [facility] [address] [place] [address] Luis Finn MD [address] [facility] [address] [place], [place] [id number] Encounter for screening for malignant neoplasm of ovary; Encounter for general adult medical examination without abnormal findings; Encounter for gynecological examination (general) (routine) without abnormal findings; Encounter for screening for malignant neoplasm of cervix Social History Tobacco Use Types Packs/Day Years [...] Procedure Name Priority Date/Time Associated Diagnosis Comments PAP TEST Today 11/27/2020 10:15 EDT Encounter for screening for malignant neoplasm of ovary Encounter for general adult medical examination without abnormal findings Encounter for gynecological examination (general) (routine) without abnormal findings Encounter for screening for malignant neoplasm of cervix HPV DNA DETECTION WITH GENOTYPING, PCR Today 11/27/2020 10:15 EDT Encounter for screening for malignant neoplasm of ovary Encounter for general adult medical examination without abnormal findings Encounter for gynecological examination (general) (routine) without abnormal findings Encounter for screening for malignant neoplasm of cervix documented in this encounter Results * HUMAN PAPILLOMAVIRUS (HPV) DETECTION-HIGH RISK TYPES (11/27/2020 10:15 EDT) HPV other High Risk types, PCR Negative Negative 12/04/2020 15:27 EDT [facility] Comment:No E6 or E7 mRNA is detected from HPV types 16,18,31,33,35,39,45,51,52,56,58,59,66, and 68 by pediatric social worker mediated amplification. Papanicolaou smear specimen (specimen) CERVIX UTERI STRUCTURE / Unknown 11/27/2020 10:15 EDT 12/03/2020 12:28 EDT Luis Finn MD MICROBIOLOGY - GENER AL ORDERABLES Performing Organization Address City/State/[facility] Co de Phone Number [facility] [address] [place] [phone] * PAP TEST (11/27/2020 10:15 EDT) Specimens A. Cervix and/or Endocervix , ThinPrep Imaging System with Manual Evaluation 12/04/2020 15:27 [facility] Specimen Adequacy Satisfactory for Evaluation - transformation zone component present 12/04/2020 15:27 [facility] General Categorization Negative for intraepithelial lesion or malignancy 12/04/2020 15:27 [facility] Descriptive Diagnosis Fungal organisms present morphologically consistent with Justine species. 12/04/2020 15:27 [facility] Attestation . 12/04/2020 15:27 [facility] at 1527 Clinical History See below 12/05/19 15:27 [facility] HPV The result for the Human Papillomavirus (HPV) Detection-High Risk Types is Negative. No E6 or E7 mRNA is detected from HPV types 16,18,31,33,35,39 ,45,51,52,56,58,5 9,66, and 68 by pediatric social worker mediated amplification.Casie ting was performed on specimen [id number] and was resulted on 12/04/2020 1524 EDT by BLAISE, LAB INSTRUMENT RESULTS IN 12/04/2020 15:27 EDT [facility] Performing Lab [facility] 12/04/2020 15:27 EDT [facility] Scanned Images 12/04/2020 15:27 EDT [facility] Papanicolaou smear specimen (specimen) CERVIX UTERI STRUCTURE / Unknown 11/27/2020 10:15 EDT 11/30/2020 15:33 EDT Luis Finn MD PATHOLOGY ORDERABLES [facility] [address] [place] [address] documented in this encounter Visit Diagnoses Diagnosis Encounter for screening for malignant neoplasm of ovary Special screening for malignant neoplasms, ovary Encounter for general adult medical examination without abnormal findings Unspecified general medical examination Encounter for gynecological examination (general) (routine) without abnormal findings Encounter for screening for malignant neoplasm of cervix Screening for malignant neoplasm of the cervix documented in this encounter Care Teams Public Works Inspector Relationship Specialty Start Date End Date Unknown, Provider, PCP - General 04/17/13 documented as of this encounter
--- OUTSIDE RECORDS SUMMARY | 2024-04-01 18:17 | XMS_ITS | Encounter Summary ---
Author Organization [facility] Address [address] [place] [address] Care Team Providers Care Muskrat Trapper Name Role Phone Unknown, Provider Primary Care Provider Encounter Details Date Type Department Care Team (Late st Contact Info) Description 09/02/2019 Lab Requisition [facility] Pathology & Laboratory Medicine - [address] [address] Unknown, Provider, Social History Tobacco Use Types Packs/Day Years Used Date Smoking Tobacco: Never Assessed Sex and Gender Information Value Date Recorded Sex Assigned at Not on file Gender Identity Not on file Sexual Orientation Not on file documented as of this encounter Plan of Treatment Not on file documented as of this encounter Procedures Procedure Name Priority Date/Time Associated Diagnosis Comments CHLAMYDIA/N. GONORRHOEAE AMPLIFIED NUCLEIC ACID Routine 09/01/2019 21:40 EST documented in this encounter Results * CHLAMYDIA/N. GONORRHOEAE AMPLIFIED RNA (09/01/2019 21:40 EST) Neisseria gonorrhoeae Result Negative Negative 09/03/2019 12:55 EST [facility] Chlamydia trachomatis Result Negative Negative 09/03/2019 12:55 EST [facility] Swab SPECIMEN FROM UTERINE CERVIX / Unknown 09/01/2019 21:40 EST 09/02/2019 15:46 EST Provider Unknown MICROBIOLOGY - GENER AL ORDERABLES [facility] [address] [place] [address] documented in this encounter Visit Diagnoses Not on filedocumented in this encounter Care Teams Muskrat Trapper Relationship Specialty Start Date End Date Unknown, Provider, PCP - General 04/17/13 documented as of this encounter
--- OUTSIDE RECORDS SUMMARY | 2024-04-01 18:17 | XMS_ITS | Encounter Summary ---
Author Organization [facility] Address [address] [place] [address] Care Team Providers Care Display Designer Name Role Phone Unknown, Provider Primary Care Provider [phone] Reason for Visit * (Routine/Next Available) - Receiving Office to Obtain Authorization Specialty Diagnoses / Procedures Referred By Jaciel maloney Referred To Contact Procedures MR OUTSIDE IMAGES NEURO Unknown, Provider, Referral ID Status Reason Start Date Expiration Date Visits Requested Visits Authorized [id number] Receiving Office to Obtain Authorization 04/26/2022 1 1 Encounter Details Date Type Department Care Team (Latest Contact Info) Description 04/15/2022 - 04/15/2022 23:59 EDT Hospital Encounter [facility] Secondary Reads [place] Discharge Disposition: Home or [...] Procedure Name Priority Date/Time Associated Diagnosis Comments MR OUTSIDE IMAGES NEURO Routine 04/15/2022 12:07 EDT documented in this encounter Results * MR OUTSIDE IMAGES NEURO (04/15/2022 12:07 EDT) Narrative 04/26/2022 12:07 EDT This is a non-reportable exam. Provider Unknown MD FERRARA OTHER IMAGING OR DERABLES documented in this encounter Visit Diagnoses Not on filedocumented in this encounter Care Teams Display Designer Relationship Specialty Start Date End Date Unknown, Provider, PCP - General 04/17/13 documented as of this encounter
--- OUTSIDE RECORDS SUMMARY | 2024-04-01 18:17 | XMS_ITS | Encounter Summary ---
Author Organization [facility] Address [address] [place] [address] Care Team Providers Care Spare Person Name Role Phone Unknown, Provider Primary Care Provider [phone] Encounter Details Date Type Department Care Team (Late st Contact Info) Description 11/28/2020 Lab Requisition [facility] Pathology & Laboratory Medicine - [address] [address] Outr Resulting Lab, Provider Social History Tobacco [...] Procedure Name Priority Date/Time Associated Diagnosis Comments RHEUMATOID FACTOR Routine 11/27/2020 11: 04 EDT ANTI NUCLEAR AB (JANETH), IFA Routine 11/27/2020 11:04 EDT documented in this encounter Results * RHEUMATOID FACTOR (11/27/2020 11:04 EDT) Rheumatoid Factor <8.6 <12.0 IU/mL 11/29/2020 16:26 EDT [facility] Blood VENOUS BLOOD / Unknown 11/27/2020 11:04 EDT 11/29/2020 16:06 EDT Provider Outr Resulting Lab CHEMISTRY & BLOOD GAS ORDERABLES Performing Organization Address [facility] Co de Phone Number [facility] [address] [place] [address] * (ABNORMAL) ANTI NUCLEAR AB (JANETH), IFA (11/27/2020 11:04 EDT) JANETH Interpretation Positive(A) Negative 11/30/2020 13:53 EDT [facility] Comment: For titers greater than or equal to 1:160 (except the centromere and nucleolar patterns) it is recommended that specific follow-up autoantibody testing ??(such as for dsDNA and Extractable Nuclear Antigens) be performed on all diffuse and/or speckled patterns NOTE: For add-on testing dsDNA is stable for 7 days refrigerated while Extractable Nuclear Antigens are only stable for 48 hours refrigerated. Cytoplasmic Pattern Noted, Rods and rings JANETH Titer and Pattern 1 1:320 Speckled 11/30/2020 13:53 EDT [facility] Blood VENOUS BLOOD / Unknown 11/27/2020 11:04 EDT 11/29/2020 16:06 EDT Narrative [facility] - 11/30/2020 13:53 EDT Results were obtained with the INOVA NOVA Lite HEp-2 JANETH Kit by indirect immunofluorescence. Provider Outr Resulting Lab IMMUNOLOGY A ND SEROLOGY ORDERABLES Performing Organization Address [facility] Co de Phone Number [facility] [address] [place] [address] documented in this encounter Visit Diagnoses Not on filedocumented in this encounter Care Teams Spare Person Relationship Specialty Start Date End Date Unknown, Provider, PCP - General 04/17/13 documented as of this encounter
--- OUTSIDE RECORDS SUMMARY | 2024-04-01 18:17 | XMS_ITS | Encounter Summary ---
Author Organization [facility] Address [address] [place] [address] Care Team Providers Care Teacher Aide Clerical Name Role Phone Unknown, Provider Primary Care Provider Encounter Details Date Type Department Care Team (Late st Contact Info) Description 08/17/2020 Lab Requisition [facility] Pathology & Laboratory Medicine - [address] [address] Outr Resulting Lab, Provider Social History Tobacco [...] Date/Time Associated Diagnosis Comments LYME AB Routine 08/14/2020 15:15 EST documented in this encounter Results * LYME AB (08/14/2020 15:15 EST) Lyme Ab Negative Negative 08/18/2020 11:04 EST [facility] Comment:New 3rd generation a ssay in use 01/01/2020 Blood VENOUS BLOOD / Unknown 08/14/2020 15:15 EST 08/17/2020 16:23 EST Provider Outr Resulting Lab IMMUNOLOGY A ND SEROLOGY ORDERABLES [facility] [address] [place] [address] documented in this encounter Visit Diagnoses Not on filedocumented in this encounter Care Teams Teacher Aide Clerical Relationship Specialty Start Date End Date Unknown, Provider, PCP - General 04/17/13 documented as of this encounter
--- OUTSIDE RECORDS SUMMARY | 2024-04-01 18:17 | XMS_ITS | Encounter Summary ---
Author Organization [facility] Address [address] [place] [address] Care Team Providers Care Waist Presser Name Role Phone Unknown, Provider Primary Care Provider [phone] Reason for Visit * (Routine/Next Available) - Receiving Office to Obtain Authorization Specialty Diagnoses / Procedures Referred By Jaciel maloney Referred To Contact Procedures XR OUTSIDE IMAGES NEURO Unknown, Provider, Referral ID Status Reason Start Date Expiration Date Visits Requested Visits Authorized [id number] Receiving Office to Obtain Authorization 02/21/2022 1 1 Encounter Details Date Type Department Care Team (Latest Contact Info) Description 01/27/2022 - 01/27/2022 23:59 EDT Hospital Encounter [facility] Secondary Reads [place] Discharge Disposition: Home or [...] Date/Time Associated Diagnosis Comments XR OUTSIDE IMAGES NEURO Routine 02/21/2022 16:24 EDT documented in this encounter Results * XR OUTSIDE IMAGES NEURO (02/21/2022 16:24 EDT) Narrative 02/21/2022 16:24 EDT This is a non-reportable exam. Provider Unknown MD FERRARA OTHER IMAGING OR DERABLES documented in this encounter Visit Diagnoses Not on filedocumented in this encounter Care Teams Waist Presser Relationship Specialty Start Date End Date Unknown, Provider, PCP - General 04/17/13 documented as of this encounter
--- OUTSIDE RECORDS SUMMARY | 2024-04-01 18:18 | XMS_ITS | Encounter Summary ---
Author Organization [facility] Address [address] [place] [address] Care Team Providers Care Director Of Operations Name Role Phone Unavailable Primary Care Provider Unavailabl e Encounter Details Date Type Department Care Team (Late st Contact Info) Description 02/14/2005 Results Only [facility] [address] [place] [address] Sarahi Olguin MD [address] [place] [address] [place] [address] Social History Tobacco Use Types Packs/Day Years Used Date Smoking Tobacco: Never Assessed Sex and Gender Information Value Date Recorded Sex Assigned at Not on file Gender Identity Not on file Sexual Orientation Not on file documented as of this encounter Plan of Treatment Not on file documented as of this encounter Procedures Procedure Name Priority Date/Time Associated Diagnosis Comments SURGICAL PATHOLOGY Routine 02/14/2005 0:00 EDT documented in this encounter Results * SURGICAL PATHOLOGY (02/14/2005 0:00 EDT) Pathology Report: SURGICAL PATHOLOGY REPORT Reports generated via electronic interface contain original data; however they are lacking the format of the original report. Caution should be taken when reading/interpreti ng unformatted reports. Name: ? HARDIK PADILLA ? Accession #: ? [id number] ? : ? 1975 (Age: 29) ??F ? Collect Date: ? 02/14/2005 ? Location: ? [facility] ? Receive Date: ? 02/16/2005 ? Provider: SARAHI OLGUIN MD Copy to: MARINO RAYMUNDO ? Final Pathologic Diagnosis: ? Endocervix, curettage: - Benign endocervical glands and stroma. ??See comment. Comment: ? The previous PAP test ([id number]) was reviewed and shows rare, atypical cells with features of low grade squamous intraepithelial lesion. ??No dysplastic cells are seen in the current endocervical curettage specimen. ??Deeper sections have been examined. ??(Dr. Chencho Unger)/[facility] Document reviewed and electronically signed by: TIFFANY BLOOD MD Report ??Date: 02/18/2005 16:12 By the signature above, the attending physician certifies that he/she has personally conducted a gross and/or microscopic examination of the described specimens and rendered or confirmed the above diagnosis. Specimen(s) Received: ? Endocervical curettage Clinical History: ? 12/13/04 PAP ??LSIL; LMP: 01/22/05 Gross Description: ? Received in formalin labelled Padilla and endocervical curettage are 0.5 cc of red-brown hemorrhagic mucinous material. ??The specimen is entirely submitted in one cassette. ??(Mil Pizarro)/[facility] End of Report [facility] 02/14/2005 02/16/2005 9:2 7 EDT Sarahi Olguin MD PATHOLOGY ORDERABLES [facility] [address] [place] [address] documented in this encounter Visit Diagnoses Not on filedocumented in this encounter
--- OUTSIDE RECORDS SUMMARY | 2024-04-01 18:18 | XMS_ITS | Encounter Summary ---
Author Organization [facility] Address [address] [place] [address] Care Team Providers Care Preschool Teacher Name Role Phone Unavailable Primary Care Provider Unavailabl e Encounter Details Date Type Department Care Team (Late st Contact Info) Description 02/11/2004 19:50 EDT Hospital Encounter [facility] - Other [address] [place] [address] Sarahi Olguin MD [address] [place] [address] [place] [address] Social History Tobacco Use Types Packs/Day Years [...]
--- OUTSIDE RECORDS SUMMARY | 2024-04-01 18:18 | XMS_ITS | Encounter Summary ---
Author Organization [facility] Address [address] [place] [address] Care Team Providers Care Apartment Property Manager Name Role Phone Unavailable Primary Care Provider Unavailabl e Encounter Details Date Type Department Care Team (Late st Contact Info) Description 11/09/2000 Results Only [facility] - Maple conversion [address] [place] [address] Rachael Kang CNM [address] [place], [place] [id number] Social History Tobacco Use Types Packs/Day Years Used Date Smoking Tobacco: Never Assessed Sex and Gender Information Value Date Recorded Sex Assigned at Not on file Gender Identity Not on file Sexual Orientation Not on file documented as of this encounter Plan of Treatment Not on file documented as of this encounter Procedures Procedure Name Priority Date/Time Associated Diagnosis Comments CYTOPATHOLOGY Routine 11/09/2000 0:00 EDT documented in this encounter Results * CYTOPATHOLOGY (11/09/2000 0:00 EDT) Pathology Report: CYTOPATHOLOGY REPORT Reports generated via electronic interface contain original data; however they are lacking the format of the original report. Caution should be taken when reading/interpreti ng unformatted reports. Name: ? HARDIK PADILLA ? Accession #: ? [id number] : ? 1975 (Age: 25) ??F ?Collect Date: ? 11/09/2000 Location: ? [facility] ? Receive Date: ? 11/13/2000 Provider: ?RACHAEL KANG CNM Copy to: ? Specimen/Source: ?ThinPrep Pap Test, Cervix/Endocervix Last Menstrual Period: ? /?/ Menstrual/Pregnanc y Status: ? SPECIMEN ADEQUACY ? Satisfactory for evaluation. GENERAL CATEGORIZATION ? Epithelial Cell Abnormality DESCRIPTIVE DIAGNOSIS ? Atypical squamous cells of undetermined significance (ASCUS), cannot rule out high grade squamous intraepithelial lesion (HSIL). ? Document reviewed and electronically signed by: ? Judie Bowling MD ? Report Date: ??11/17/2000 11:16 End of Report [facility] 11/09/2000 11/13/2000 Rachael Kang CNM PATHOLOGY ORDERABLES Performing Organization Address City/State/[place] Co de Phone Number [facility] [address] [place] [address] documented in this encounter Visit Diagnoses Not on filedocumented in this encounter
--- OUTSIDE RECORDS SUMMARY | 2024-04-01 18:18 | XMS_ITS | Encounter Summary ---
Author Organization [facility] Address [address] [place] [address] Care Team Providers Care Internal Medicine Nurse Practitioner Name Role Phone Unavailable Primary Care Provider Unavailabl e Encounter Details Date Type Department Care Team (Late st Contact Info) Description 08/30/2005 Results Only [facility] - Maple conversion [address] [place] [address] Yisel Wall FNP [address] [place], [place] [id number] Social History Tobacco Use Types Packs/Day Years Used Date Smoking Tobacco: Never Assessed Sex and Gender Information Value Date Recorded Sex Assigned at Not on file Gender Identity Not on file Sexual Orientation Not on file documented as of this encounter Plan of Treatment Not on file documented as of this encounter Procedures Procedure Name Priority Date/Time Associated Diagnosis Comments CYTOPATHOLOGY Routine 08/30/2005 0:00 EST documented in this encounter Results * CYTOPATHOLOGY (08/30/2005 0:00 EST) Pathology Report: CYTOPATHOLOGY REPORT Reports generated via electronic interface contain original data; however they are lacking the format of the original report. Caution should be taken when reading/interpreti ng unformatted reports. Name: ? HARDIK PADILLA ? Accession #: ? [id number] : ? 1975 (Age: 29) ??F ?Collect Date: ? 08/30/2005 Location: ? [facility] ? Receive Date: ? 09/01/2005 Provider: ?YISEL LEALP Copy to: ? Specimen/Source: ?ThinPrep Pap Test, Cervix/Endocervix, processed on moziy ThinPrep Imaging System, with manual evaluation Last Menstrual Period: ? 08/10/05 Previous Gynecologic Pathology: ? Yes: minor abd only Other: ? HPVA - HPV testing requested if ASC-US on the current ThinPrep Pap test. ? SPECIMEN ADEQUACY ? Satisfactory for Evaluation - transformation zone component present GENERAL CATEGORIZATION ? Negative for Intraepithelial Lesion or Malignancy INTERPRETATION ? Fungal organisms present morphologically consistent with Justine species. ? Document reviewed and electronically signed by: ? Renetta Phoenix, SCT(ASCP) ? Report Date: ??09/02/2005 15:39 End of Report [facility] 08/30/2005 09/01/2005 Yisel LEALP PATHOLOGY ORDERABLES Performing Organization Address City/State/[facility] Co de Phone Number [facility] [address] [place] [address] documented in this encounter Visit Diagnoses Not on filedocumented in this encounter
--- OUTSIDE RECORDS SUMMARY | 2024-04-01 18:18 | XMS_ITS | Encounter Summary ---
Author Organization [facility] Address [address] [place] [address] Care Team Providers Care Private Investigator Name Role Phone Unavailable Primary Care Provider Unavailabl e Encounter Details Date Type Department Care Team (Late st Contact Info) Description 10/03/2001 Results Only [facility] - Maple conversion [address] [place] [address] Rachael Kang CNM [address] [place], [place] [address] Social History Tobacco Use Types Packs/Day Years Used Date Smoking Tobacco: Never Assessed Sex and Gender Information Value Date Recorded Sex Assigned at Not on file Gender Identity Not on file Sexual Orientation Not on file documented as of this encounter Plan of Treatment Not on file documented as of this encounter Procedures Procedure Name Priority Date/Time Associated Diagnosis Comments HPV DETECTION, HIGH RISK TYPES Routine 10/03/2001 11:58 EST CYTOPATHOLOGY Routine 10/03/2001 0:00 EST documented in this encounter Results * HUMAN PAPILLOMA VIRUS DNA TEST (10/03/2001 11:58 EST) Specimen Description Cervix, ThinPrep vial [facility] Result Positive for one or more of HPV types 16,18,31,33,35 ,39,45,51,52,5 6,58,59, or 68. These high/intermedi ate risk HPV types are associated with dysplasia and some cervical cancers. [facility] Report Status Final [id number] [facility] 10/03/2001 11:5 8 EST 10/11/2001 11:33 EST Rachael Kang CNM MICROBIOLOGY - GENER AL ORDERABLES [facility] [address] [place] [address] * CYTOPATHOLOGY (10/03/2001 0:00 EST) Pathology Report: CYTOPATHOLOGY REPORT Reports generated via electronic interface contain original data; however they are lacking the format of the original report. Caution should be taken when reading/interpreti ng unformatted reports. Name: ? BOBBY HARDIK ? Accession #: ? [id number] : ? 1975 (Age: 26) ??F ?Collect Date: ? 10/03/2001 Location: ? [facility] ? Receive Date: ? 10/05/2001 Provider: ?RACHAEL KANG CNM Copy to: ? Specimen/Source: ?ThinPrep Pap Test, Cervix/Endocervix Last Menstrual Period: ? 08/15/01 Menstrual/Pregnanc y Status: ? Previous Gynecologic Pathology: ? Yes: 11/09/00 epithelial cell abnormality ASC-US: Cannot rule out ELVI Treatment History: ? Colposcopy LEEP: [facility] [place] 01[facility]21 Other: ? HPVDX - HPV testing requested regardless of diagnosis on current ThinPrep Pap test. ? SPECIMEN ADEQUACY ? Satisfactory for Evaluation - transformation zone component present GENERAL CATEGORIZATION ? Negative for Intraepithelial Lesion or Malignancy INTERPRETATION ? Fungal organisms present morphologically consistent with Justine species. ? Document reviewed and electronically signed by: ? Minerva Reveles, MODESTO(ASCP) ? Report Date: ??10/10/2001 15:13 End of Report [facility] 10/03/2001 10/05/2001 Rachael Kang CNM PATHOLOGY ORDERABLES Performing Organization Address City/State/[facility] Co de Phone Number [facility] [address] [place] [address] documented in this encounter Visit Diagnoses Not on filedocumented in this encounter
--- OUTSIDE RECORDS SUMMARY | 2024-04-01 18:18 | XMS_ITS | Encounter Summary ---
Author Organization [facility] Address [address] [place] [address] Care Team Providers Care Athletic Monitor Name Role Phone Unavailable Primary Care Provider Unavailabl e Encounter Details Date Type Department Care Team (Late st Contact Info) Description 11/07/2002 Results Only [facility] - Map conversion [address] [place] [address] Ziggy Fisher MD [address] [place] [address] Social History Tobacco Use Types Packs/Day Years Used Date Smoking Tobacco: Never Assessed Sex and Gender Information Value Date Recorded Sex Assigned at Not on file Gender Identity Not on file Sexual Orientation Not on file documented as of this encounter Plan of Treatment Not on file documented as of this encounter Procedures Procedure Name Priority Date/Time Associated Diagnosis Comments CYTOPATHOLOGY Routine 11/07/2002 0:00 EDT documented in this encounter Results * CYTOPATHOLOGY (11/07/2002 0:00 EDT) Pathology Report: CYTOPATHOLOGY REPORT Reports generated via electronic interface contain original data; however they are lacking the format of the original report. Caution should be taken when reading/interpreti ng unformatted reports. Name: ? HARDIK PADILLA ? Accession #: ? [id number] : ? 1975 (Age: 27) ??F ?Collect Date: ? 11/07/2002 Location: ? [facility] ? Receive Date: ? 11/11/2002 Provider: ?ZIGGY FISHER MD Copy to: ? Specimen/Source: ?ThinPrep Pap Test, Cervix/Endocervix Last Menstrual Period: ? 10/14/02 Previous Gynecologic Pathology: ? ASC-US: 10/22 Can't R/O ELVI HPV: 09/22 Treatment History: ? LEEP: 01/21 ? SPECIMEN ADEQUACY ? Satisfactory for Evaluation - transformation zone component present GENERAL CATEGORIZATION ? Negative for Intraepithelial Lesion or Malignancy ? Document reviewed and electronically signed by: ? Kia Rizzo, ALAN(ASCP) ? Report Date: ??11/14/2002 07:58 End of Report [facility] 11/07/2002 11/11/2002 Ziggy Fisher MD PATHOLOGY ORDERABLES [facility] [address] [place] [address] documented in this encounter Visit Diagnoses Not on filedocumented in this encounter
--- OUTSIDE RECORDS SUMMARY | 2024-04-01 18:18 | XMS_ITS | Encounter Summary ---
Author Organization [facility] Address [address] [place] [address] Care Team Providers Care Web Page Developer Name Role Phone Unavailable Primary Care Provider Unavailabl e Encounter Details Date Type Department Care Team (Late st Contact Info) Description 11/20/2000 Results Only [facility] - Maple conversion [address] [place] [address] Rachael Kang CNM [address] [place], [place] [phone] Social History Tobacco Use Types Packs/Day Years Used Date Smoking Tobacco: Never Assessed Sex and Gender Information Value Date Recorded Sex Assigned at Not on file Gender Identity Not on file Sexual Orientation Not on file documented as of this encounter Plan of Treatment Not on file documented as of this encounter Procedures Procedure Name Priority Date/Time Associated Diagnosis Comments SURGICAL PATHOLOGY Routine 11/20/2000 0:00 EDT documented in this encounter Results * SURGICAL PATHOLOGY (11/20/2000 0:00 EDT) Pathology Report: SURGICAL PATHOLOGY REPORT Reports generated via electronic interface contain original data; however they are lacking the format of the original report. Caution should be taken when reading/interpreti ng unformatted reports. Name: ? HARDIK PADILLA ? Accession #: ? [id number] ? : ? 1975 (Age: 25) ??F ? Collect Date: ? 11/20/2000 ? Location: ? [facility] ? Receive Date: ? 11/20/2000 ? Provider: RACHAEL KANG CNM Copy to: MORENITA VEE MD ? Final Pathologic Diagnosis: ? Uterine contents, evacuation: - Chorionic villi, decidual cells and gestational endometrium consistent with products of conception. Document reviewed and electronically signed by: MOSHE GARCIA MD Report ??Date: 11/22/2000 17:19 By the signature above, the attending physician certifies that he/she has personally conducted a gross and/or microscopic examination of the described specimens and rendered or confirmed the above diagnosis. Specimen(s) Received: ? POC Clinical History: ? Spont incomplete AB at 11 wks Gross Description: ? Received in [place]e' s fixative labelled [place] and POC is a cluster of smith white brown red fibro fragment of hemorrhagic soft tissue measuring 7.2 x 3.8 x 1.7 cm in aggregate. ??No parts are identified. ??[employer] Consultant sections are submitted as (A1) and (A2). ??(Dr. Lemus)/d End of Report [facility] 11/20/2000 11/20/2000 16: 14 EDT Rachael GROVER PATHOLOGY ORDERABLES [facility] [address] [place] [address] documented in this encounter Visit Diagnoses Not on filedocumented in this encounter
--- OUTSIDE RECORDS SUMMARY | 2024-04-01 18:18 | XMS_ITS | Encounter Summary ---
Author Organization [facility] Address [address] [place] [address] Care Team Providers Care Gate Technician Name Role Phone Unavailable Primary Care Provider Unavailabl e Encounter Details Date Type Department Care Team (Late st Contact Info) Description 12/13/2004 Results Only [facility] - Maple conversion [address] [place] [address] Ziggy Fisher MD [address] [place] [address] Social History Tobacco Use Types Packs/Day Years Used Date Smoking Tobacco: Never Assessed Sex and Gender Information Value Date Recorded Sex Assigned at Not on file Gender Identity Not on file Sexual Orientation Not on file documented as of this encounter Plan of Treatment Not on file documented as of this encounter Procedures Procedure Name Priority Date/Time Associated Diagnosis Comments CYTOPATHOLOGY Routine 12/13/2004 0:00 EDT documented in this encounter Results * CYTOPATHOLOGY (12/13/2004 0:00 EDT) Pathology Report: CYTOPATHOLOGY REPORT Reports generated via electronic interface contain original data; however they are lacking the format of the original report. Caution should be taken when reading/interpreti ng unformatted reports. Name: ? HARDIK PADILLA ? Accession #: ? [id number] : ? 1975 (Age: 29) ??F ?Collect Date: ? 12/13/2004 Location: ? [facility] ? Receive Date: ? 12/15/2004 Provider: ?ZIGGY FISHER MD Copy to: ? Specimen/Source: ?ThinPrep Pap Test, Cervix/Endocervix Last Menstrual Period: ? Previous Gynecologic Pathology: ? ASC-US: Cannot ??r/o ELVI 10/22 HPV: Positive 09/22 Treatment History: ? LEEP: 01/21 Other: ? Additional clinical information: Paps wnl 09/22, 10/24 & 11/24 HPVA - HPV testing requested if ASC-US on the current ThinPrep Pap test. ? SPECIMEN ADEQUACY ? Satisfactory for Evaluation - transformation zone component present GENERAL CATEGORIZATION ? Epithelial Cell Abnormality INTERPRETATION ? Squamous Cell Abnormality - Low grade squamous intraepithelial lesion (LSIL). EDUCATIONAL NOTES/RECOMMENDATI ONS ? [facility] recommends following the 2001 Consensus Guidelines for the Management of Women with Cervical Cytological Abnormalities (MALACHI,2002;287:212 0-9). Management algorithms have been distributed by [facility] and are available online at www.ASCCP.org. ? Document reviewed and electronically signed by: ? TROY TOWNSEND MD [facility] ? Report Date: ??12/27/2004 17:08 End of Report [facility] 12/13/2004 12/15/2004 Ziggy Fisher MD PATHOLOGY ORDERABLES [facility] [address] [place] [address] documented in this encounter Visit Diagnoses Not on filedocumented in this encounter
--- OUTSIDE RECORDS SUMMARY | 2024-04-01 18:18 | XMS_ITS | Encounter Summary ---
Author Organization [facility] Address [address] [place] [address] Care Team Providers Care Shelter Case Manager Name Role Phone Unavailable Primary Care Provider Unavailabl e Encounter Details Date Type Department Care Team (Late st Contact Info) Description 12/08/[address] [facility] - Maple conversion [address] [place] [address] Rachael Kang CNM [address] [place], [place] [phone] Social History Tobacco Use Types Packs/Day Years Used Date Smoking Tobacco: Never Assessed Sex and Gender Information Value Date Recorded Sex Assigned at Not on file Gender Identity Not on file Sexual Orientation Not on file documented as of this encounter Plan of Treatment Not on file documented as of this encounter Procedures Procedure Name Priority Date/Time Associated Diagnosis Comments CYTOPATHOLOGY Routine 12/08/2003 0:00 EDT documented in this encounter Results * CYTOPATHOLOGY (12/08/2003 0:00 EDT) Pathology Report: CYTOPATHOLOGY REPORT Reports generated via electronic interface contain original data; however they are lacking the format of the original report. Caution should be taken when reading/interpreti ng unformatted reports. Name: ? HARDIK PADILLA ? Accession #: ? [id number] : ? 1975 (Age: 28) ??F ?Collect Date: ? 12/08/2003 Location: ? [facility] ? Receive Date: ? 12/09/2003 Provider: ?RACHAEL KANG CNM Copy to: ? Specimen/Source: ?ThinPrep Pap Test, Cervix/Endocervix Last Menstrual Period: ? 10/06/03 Menstrual/Pregnanc y Status: ? Previous Gynecologic Pathology: ? ASC-US: Cannot R/o ELVI 10/22 HPV: + 09/22 Treatment History: ? LEEP: 01/21 Other: ? Additional clinical information: 09/22 & 10/24 negative HPVA - HPV testing requested if ASC-US on the current ThinPrep Pap test. ? SPECIMEN ADEQUACY ? Satisfactory for Evaluation - transformation zone component present GENERAL CATEGORIZATION ? Negative for Intraepithelial Lesion or Malignancy ? Document reviewed and electronically signed by: ? Renetta Phoenix, SCT(ASCP) ? Report Date: ??12/12/2003 16:21 End of Report [facility] 12/08/2003 12/09/2003 Rachael Kang CNM PATHOLOGY ORDERABLES [facility] [address] [place] [address] documented in this encounter Visit Diagnoses Not on filedocumented in this encounter
[2024-04-01 18:51] VITALS: BP 171/106; PULSE 75; RESP 18; O2SAT 97
== END 2024-04-01 18:51 | disposition home or self-care (01) ==
PROVIDERS: Emergency Provider Emergency Medicine; PCP Family Medicine
DX: R07.9 Chest pain, unspecified (principal); M54.2 Cervicalgia; M54.50 Low back pain, unspecified; R91.8 Other nonspecific abnormal finding of lung field; V49.49XA Driver injured in collision with other motor vehicles in traffic accident, initial encounter
CPT/HCPCS: 36415; 74177; 80053; 83690; 96365; 99285; 70450; 71260; 72125; 85025; 99283; J0131; J3490